=== PATIENT | female | born 1970 | race Caucasian/White ===

== ENCOUNTER 2019-12-11 13:38 | Emergency (ER) | payer OTHER, SELFPAY ==
[2019-12-11] VITALS (22 sets, daily range): BP systolic 121–172; BP diastolic 67–93; PULSE 67–85; RESP 14–32; TEMP 36.7; O2SAT 95–99
--- NOTE | ~2019-12-11 | CT_ITS ---
EXAMINATION: CT brain wo con DATE: 12/11/2019 15:14 INDICATION: Dizziness. TECHNIQUE: Computed tomography (CT) of the head was performed without intravenous contrast. The mA wa s adjusted according to patient size. Iterative reconstruction technique was employed. The dose-lengt h product was 605.33 mGy-cm. COMPARISON: Head CT 08/16/2018 FINDINGS: There is no intracranial hemorrhage, acute infarction, or abnormal intracranial mass lesion . The ventricles are normal in size. 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 The orbits are no rmal. The mastoid air cells are normal. IMPRESSION: 1. Normal brain. Reviewed, dictated and finalized at location A. IMPRESSION: 1. Normal brain.
--- NOTE | ~2019-12-11 | XR_ITS ---
EXAMINATION: XR chest 2V DATE: 12/11/2019 15:25 INDICATION: Chest pain. TECHNIQUE: Frontal and lateral views of the chest were obtained. COMPARISON: None. FINDINGS: The chest demonstrates clear lungs without pneumonia, pleural effusion, or pneumothorax. Th e heart size is normal. IMPRESSION: 1. No acute cardiopulmonary disease. Reviewed, dictated and finalized at location A.
--- NOTE | 2019-12-11 13:52 | ECG_ITS ---
Measurements Intervals [place] Rate: 73 P: 63 [place]: 132 QRS: -3 QRSD: 94 T: 28 QT: 373 QTc: 411 Interpretive Statements SINUS RHYTHM DELAYED PRECORDIAL R/S TRANSITION BASELINE ARTIFACT- I, II, III, AVR, AVL, AVF, V5-V6 BORDERLINE ECG Electronically Signed On 12-11-2019 14:26:50 CDT by Romeo Powers D.O.
[2019-12-11 14:15] LABS: Basophils Absolute Auto 0.1 K/mm3 (0.0-0.1); Basophils Percent Auto 0.7 % (0.2-1.2); Eosinophils Absolute Auto 0.3 K/mm3 (0-0.3); Eosinophils Percent Auto 2.7 % (0-4.4); Hemoglobin 13.7 g/dL (12.0-15.0); Immature Granulocyte Absolute 0.07 K/mm3 (0.00-0.031); Immature Granulocyte Percent A 0.7 % (0-0.5); Lymphocytes Absolute Auto 3.24 K/mm3 (0.9-3.2); Lymphocytes Percent Auto 34.1 % (18.3-44.2); Mean Corpuscular HGB Conc 32.6 g/dl (32-36); Mean Corpuscular Hemoglobin 28.8 pg (26-34); Mean Corpuscular Volume 88.2 fl (80-100); Mean Platelet Volume 9.2 fl (7.4-10.4); Monocytes Absolute Auto 0.8 K/mm3 (0.1-0.6); Monocytes Percent Auto 8.3 % (2.6-8.5); Neutrophils Absolute Auto 5.1 K/mm3 (1.3-6.7); Neutrophils Percent Auto 53.5 % (45.5-73.1); Platelet Count Result 317 k/mm3 (150-375); Red Blood Count 4.76 M/mm3 (4.2-5.4); Red Cell Distribution Width 14.1 % (11.5-14.5); White Blood Count 9.5 K/mm3 (4.5-10.0)
[2019-12-11 14:22] LABS: Add Urine Microscopic? YES; Appearance Urine Clear (Clear); Bacteria Urine Trace /hpf; Bilirubin Urine Negative (Negative); Blood Urine Negative (Negative); Color Urine Colorless (Yellow); Glucose Urine UA Negative (Negative); Ketones Urine Negative (Negative); Leukocyte Esterase Ur Negative LEU/UL (Negative); Nitrate Urine Negative (Negative); Protein Urine Negative (Negative); RBC Urine 0-2 /hpf (0-2); Specific Grav Ur 1.012 (1.001-1.035); Squamous Epithelial Cell Urine Few /hpf (Few); Urobilinogen Urine Negative mg/dL (<2.0); WBC Urine 0-3 /hpf
[2019-12-11 14:26] LABS: INR 0.9; Prothrombin Time 11.8 Seconds (11.1-14.7)
[2019-12-11 14:27] LABS: Partial Thromboplastin Time 26.9 SECONDS (22.3-36.8)
[2019-12-11 14:29] LABS: Blood Urea Nitrogen 16 mg/dL (7-17); Calcium 9.7 mg/dL (8.4-10.2); Carbon Dioxide 27 mmol/L (22-30); Chloride 104 mmol/L (98-107); Estimated CRCL calculation 83 ml/min; Estimated Glomerular Filt Rate > 60; Glucose 105 mg/dL (65-105); Potassium 4.2 mmol/L (3.4-5.0); Sodium 139 mmol/L (137-145)
[2019-12-11 14:41] LABS: Troponin I < 0.012 ng/mL (0.000-0.034)
--- NOTE | 2019-12-11 15:00 | ED.GENADULT ---
HPI - General Adult General Chief complaint: Recheck/Abnormal Lab/Rx Stated complaint: HIGH BLOOD PRESSURE Time Seen by Provider: 12/11/19 14:35 Source: RN notes reviewed History of Present Illness HPI narrative: Patient presents emergency department from home for high blood pressure. Patient states she has a history of high blood pressure and was seen by her PCP today and recommended come to the ER for further evaluation. Is currently on amlodipine 5 mg daily which she took this morning. Patient is to start yesterday she began to have intermittent headaches with intermittent blurred vision. She states currently she has no headache or blurred vision. She also notes some intermittent feeling of heaviness in her anterior chest bilaterally that is also currently resolved. She denies any fevers or chills numbness or tingling in extremities shortness of breath abdominal pain nausea vomiting or any other symptoms Related Data Allergies Allergy/AdvReac Type Severity Reaction Status Date / Time Penicillins Allergy Unknown Hives / Verified 03/15/19 10:59 Red Face Review of Systems Review of Systems: Narrative: Gen.: Denies fevers or chills Eyes: see HPI ENT: Denies congestion Respiratory: Denies shortness of breath or cough CV: See HPI GI: Denies abdominal pain nausea, emesis or diarrhea denies burning, urgency, frequency or hematuria Musculoskeletal: Denies back pain or muscle pain Neuro: Denies numbness, tingling, weakness or focal weakness, reports headache Skin: Denies rash Except as documented, all other systems reviewed and negative [facility] Past Medical History Medical History (Updated 12/11/19 @ 16:29 by Alvin Saul DO) Hypertension Social History Social History (Updated 12/11/19 @ 15:01 by Alvin Saul DO) Smoking status: Never smoker Exam Narrative: Exam Narrative: APPEARANCE: No acute distress, nontoxic, resting in bed HEENT: Normocephalic, atraumatic, OMM, TMs clear bilaterally EYES: PERRL, EOMI NECK: Supple, nontender, full range of motion without pain, no meningismus RESPIRATORY: No respiratory distress, clear to auscultation bilaterally with no rhonchi wheezing or rales CARDIOVASCULAR: RRR s murmur ABDOMINAL: Soft, nontender, nondistended MUSCULOSKELETAL: Moves all extremities. No clubbing, cyanosis or edema. NEURO: A and O ?3, following commands, speech normal, no facial droop,muscle strength 5 out of 5 bilateral upper and lower extremities SKIN:: Warm, dry. Normal Color PSYCHIATRIC: Normal affect/mood Course Course Emergency Course: Patient is remained asymptomatic throughout stay in ED Dr. Mckeon presentation work-up. Agrees plan for discharge per request patient started on hydrochlorothiazide 12.5 mg daily Discussed with patient results of workup and diagnosis. Discussed need for follow-up with primary care, proper use of medication, and reasons to return to the emergency department. Patient understands and agrees to current treatment plan Vital Signs Vital signs: Vital Signs Temperature 98.0 F 12/11/19 13:47 Pulse Rate 80 12/11/19 13:47 Respiratory Rate 18 12/11/19 13:47 Blood Pressure 121/93 H 12/11/19 13:47 Pulse Oximetry 95 12/11/19 13:47 Temperature 98.0 F 12/11/19 13:47 Pulse Rate 80 12/11/19 13:47 Respiratory Rate 18 12/11/19 13:47 Blood Pressure 121/93 H 12/11/19 13:47 Pulse Oximetry 95 12/11/19 13:47 Medical Decision Making MDM Narrative Medical decision making narrative: Patient's headache was not sudden or maximal in onset. There are no focal deficits on exam. Subarachnoid hemorrhage is felt to be unlikely at this time. There is no history of fever and neck is supple to evaluation without meningismus. Meningitis is felt to be unlikely. No traumatic history or signs of trauma on evaluation. Risk factors for cerebral venous thrombosis reviewed, no visual acuity change benign funduscopy. Cerebral venous thrombosis is felt unlikely at
--- NOTE | 2019-12-11 15:49 | PC.NURSE ---
Per EDP via verbal order readback. Do not give Pt. the aspirin.
[2019-12-11] MEDS: hydroCHLOROthiazide 12.5 MG CAPSULE PO (17:03)
== END 2019-12-11 17:17 | disposition home or self-care (01) ==
PROVIDERS: Emergency Provider Emergency Medicine; PCP Internal Medicine
DX: I10 Essential (primary) hypertension (principal); R51 Headache; R94.31 Abnormal electrocardiogram [ECG] [EKG]
CPT/HCPCS: 36415; 70450; 71046; 80048; 81001; 81025; 84484; 85025; 85610; 85730; 93005; 99284; A9270

== ENCOUNTER 2020-02-12 14:00 | Observation (INO) | payer OTHER, SELFPAY ==
[2020-02-12] VITALS (7 sets, daily range): BP systolic 120–148; BP diastolic 54–98; PULSE 86–97; RESP 20–22; TEMP 36.2–37.3; O2SAT 95–99; BMI 53.4
--- NOTE | ~2020-02-12 | US_ITS ---
EXAMINATION: US venous doppler [facility] EXAM DATE: 02/12/2020 15:29 INDICATION: Left leg edema, pain. TECHNIQUE: Multiple grayscale, color flow and Doppler images of the left lower extremity deep venous system were obtained and reviewed. There is no prior study for comparison. FINDINGS: The left common femoral, femoral and profunda veins demonstrate normal color flow, respirat ory variation, augmentation and compressibility. Compressibility, color flow confirmed within the le ft popliteal, posterior tibial, peroneal, and greater saphenous veins. Right inguinal lymph node whi ch is enlarged at 2.1 x 1.1 x 2.5 cm, but with a normal expected fatty hilum indicating its likely re active. IMPRESSION: 1. No left lower extremity deep venous thrombosis. 2. Right inguinal lymphadenopathy, likely reactive. Reviewed, dictated and finalized at location B.
--- NOTE | ~2020-02-12 | CT_ITS ---
EXAMINATION: CTA chest PE protocol DATE: 02/12/2020 16:48 INDICATION: Shortness of breath. Left lower limb swelling and erythema. Dyspnea and fever. TECHNIQUE: Computed tomography (CT) pulmonary angiogram of the chest was performed with 100 mL Omnipa que-350 intravenous contrast. Additional 3D reconstructions utilizing coronal maximum intensity proje ction (MIP) were performed. Automated exposure control and iterative reconstruction technique were em ployed. The dose-length product was 1066.47 mGy-cm. COMPARISON: None FINDINGS: Good contrast opacification of the pulmonary arteries. There is mild streak artifact from dense contr ast in the superior vena cava and right atrium. Mild scattered respiratory motion artifact which only mildly decreases sensitivity in some of the smaller subsegmental pulmonary arteries. Lungs are clear with no pneumonia, pulmonary edema, pleural effusion or pneumothorax. Heart size is normal. No peric ardial effusion. Thoracic aorta is normal in caliber with no dissection. No pathologically enlarged t horacic lymphadenopathy. Visualized upper abdomen is unremarkable. Mild thoracic spondylosis. IMPRESSION: 1. No pulmonary embolism or other acute cardiopulmonary disease. Reviewed, dictated and finalized at location A.
--- NOTE | 2020-02-12 14:16 | ED.GENADULT ---
HPI - General Adult General Chief complaint: Unspecified Stated complaint: Possible Blood Cots, Sent by PCP Time Seen by Provider: 02/12/20 14:15 Source: patient Mode of arrival: ambulatory Limitations: no limitations History of Present Illness HPI narrative: Patient is a 50-year-old female with a history of hypertension and asthma who presents for evaluation of left lower extremity swelling, redness and pain as well as cough and shortness of breath. Patient states that she developed lower extremity swelling, redness and a dull, aching pain in the left lower leg over 3 days ago. Patient has been on clindamycin for 72 hours without improvement in her symptoms or the redness. She states she was unable to bear weight yesterday due to the pain. She has been febrile to 101 Fahrenheit today. She has been alternating Tylenol and ibuprofen without improvement in her symptoms. Patient denies nausea or vomiting. Patient is also reporting some mild chest pain and shortness of breath. She states the pain is described as a pressure, no radiation to the jaw, shoulder or back. No ripping or tearing sensation to the flank. Related Data Home Medications Medication Instructions Recorded Confirmed amlodipine 5 mg PO DAILY 02/12/20 bupropion HCl [Wellbutrin SR] 150 mg PO BID 02/12/20 fluticasone furoate-vilanterol 1 inh INHALATION DAILY 02/12/20 [Breo Ellipta] lisinopril 5 mg PO DAILY 02/12/20 montelukast 10 mg PO DAILY 02/12/20 omeprazole 20 mg PO DAILY 02/12/20 pravastatin 40 mg PO HS 02/12/20 trazodone 50 mg PO HS 02/12/20 Allergies Allergy/AdvReac Type Severity Reaction Status Date / Time Penicillins Allergy Unknown Hives / Verified 02/12/20 17:25 Red Face Review of Systems Review of Systems: Narrative: CONSTITUTIONAL: Reports fever and chills EYES: Denies visual changes ENT: Denies rhinorrhea, congestion, sore throat, or otalgia. CARDIOVASCULAR: Reports chest pressure, reports left leg swelling RESPIRATORY: Reports cough and shortness of breath GASTROINTESTINAL: Denies abdominal pain, nausea, vomiting, or diarrhea. GENITOURINARY: Denies dysuria or hematuria. SKIN: Denies rash or itching. MUSCULOSKELETAL: Denies back pain, joint pain, or myalgia. NEUROLOGIC: Reports mild headache PMFSH Past Medical History Medical History Asthma Hypertension Social History Social History Smoking status: Never smoker Gender identity (if verbalized by the patient): Female Exam Narrative: Exam Narrative: GENERAL: Awake, alert, conversant HEAD: Normocephalic, atraumatic. EYES: PERRLA and EOMI. ENT: Nares clear, no rhinorrhea or epistaxis. Mucous membranes moist. NECK: Supple. CHEST: No respiratory distress, breathing even and non labored, + pleuritic pain, no chest wall tenderness HEART: Regular rate, sinus rhythm ABDOMEN:Obese, non distended, non tender EXTREMITIES: Normal range of motion. Left lower extremity erythema, appx 12 cm overlying anterior lower leg, nearly circumferential, edema, warmth, 1 small blister on the medial aspect of the leg, no abscess, positive calf tenderness SKIN: Warm, dry, no rash. NEURO:No focal deficits. Alert and oriented x3 Course Vital Signs Vital signs: Vital Signs Temperature 36.6 C 02/12/20 14:11 Pulse Rate 88 02/12/20 14:11 Respiratory Rate 20 02/12/20 14:11 Blood Pressure 138/66 02/12/20 14:11 Pulse Oximetry 99 02/12/20 14:11 Temperature 36.6 C 02/12/20 14:11 Pulse Rate 88 02/12/20 14:11 Respiratory Rate 20 02/12/20 14:11 Blood Pressure 138/66 02/12/20 14:11 Pulse Oximetry 99 02/12/20 14:11 Medical Decision Making MDM Narrative Medical decision making narrative: Patient presenting for evaluation of left lower extremity pain. Also reporting fever, intermittent chest pain, some shortness of breath. No productive cough. Patient is
--- NOTE | 2020-02-12 14:48 | ECG_ITS ---
Measurements Intervals [place] Rate: 74 P: 12 [place]: 132 QRS: 2 QRSD: 99 T: 10 QT: 405 QTc: 451 Interpretive Statements SINUS RHYTHM DELAYED PRECORDIAL R/S TRANSITION BORDERLINE T WAVE ABNORMALITY- INFERIOR LEADS BORDERLINE ECG Electronically Signed On 02-12-2020 19:34:03 CDT by Romeo Powers D.O.
[2020-02-12 15:11] LABS: Basophils Absolute Auto 0.1 K/mm3 (0.0-0.1); Basophils Percent Auto 0.6 % (0.2-1.2); Eosinophils Absolute Auto 0.1 K/mm3 (0-0.3); Eosinophils Percent Auto 1.2 % (0-4.4); Hematocrit 36.6 % (37.0-47.0); Hemoglobin 11.7 g/dL (12.0-15.0); Immature Granulocyte Absolute 0.09 K/mm3 (0.00-0.031); Immature Granulocyte Percent A 0.9 % (0-0.5); Lymphocytes Absolute Auto 2.37 K/mm3 (0.9-3.2); Lymphocytes Percent Auto 23.5 % (18.3-44.2); Mean Corpuscular Hemoglobin 28.6 pg (26-34); Mean Corpuscular Volume 89.5 fl (80-100); Mean Platelet Volume 9.4 fl (7.4-10.4); Monocytes Absolute Auto 0.8 K/mm3 (0.1-0.6); Monocytes Percent Auto 7.9 % (2.6-8.5); Neutrophils Absolute Auto 6.7 K/mm3 (1.3-6.7); Neutrophils Percent Auto 65.9 % (45.5-73.1); Platelet Count Result 228 k/mm3 (150-375); Red Blood Count 4.09 M/mm3 (4.2-5.4); Red Cell Distribution Width 15.3 % (11.5-14.5); White Blood Count 10.1 K/mm3 (4.5-10.0)
[2020-02-12 15:21] LABS: Lactic Acid Reflex 1.4 mmol/L (0.7-2.1)
[2020-02-12 15:23] LABS: Prothrombin Time 13.3 Seconds (11.1-14.7)
[2020-02-12 15:24] LABS: Partial Thromboplastin Time 29.7 SECONDS (22.3-36.8)
[2020-02-12 15:27] LABS: Alanine Aminotransferase 33 U/L (4-35); Albumin Level 3.9 g/dL (3.5-5.1); Alkaline Phosphatase 129 U/L (38-126); Anion Gap 11 mmol/L (8-16); Aspartate Amino Transferase 34 U/L (14-36); Bilirubin,Total 0.1 mg/dL (0.2-1.3); Blood Urea Nitrogen 8 mg/dL (7-17); Calcium 8.6 mg/dL (8.4-10.2); Carbon Dioxide 24 mmol/L (22-30); Chloride 105 mmol/L (98-107); Estimated CRCL calculation 94 ml/min; Estimated Glomerular Filt Rate > 60; Glucose 139 mg/dL (65-105); Potassium 3.7 mmol/L (3.4-5.0); Sodium 140 mmol/L (137-145)
[2020-02-12 15:34] LABS: NT Pro B Type Natriuretic Pept 152 PG/ML (5-100); Troponin I < 0.012 ng/mL (0.000-0.034)
[2020-02-12] MEDS: ASPIRIN 81 MG CHEWABLE TABLET 324 MG PO (17:19)
[2020-02-12] MEDS: SODIUM CHLORIDE 0.9% IV 1,000 ML 999 ML IV CONT ×2 (17:21→17:24)
[2020-02-12 19:46] LABS: Troponin I < 0.012 ng/mL (0.000-0.034)
[2020-02-12] MEDS: MORPHINE SULFATE 4 MG/ML INJ IV PUSH (20:01)
--- NOTE | 2020-02-12 21:05 | ADMGEN ---
This patient, Brittney Marmolejo, was admitted to Medical Room 243-. Patient/family oriented to hospital policies and general routines including ID bracelet, bed and alarms, visiting hours, pain management, procedures, bathroom and other care routines, personal items, smoking policy, room service/diet, and visiting hours. Valuables list has been completed. Information on how to activate the Rapid Response Team has been discussed. Patient/Family are encouraged to report perceived risks to care and to ask questions if they do not understand what they are told or what they should do.
--- NOTE | 2020-02-12 21:28 | PM.IMHP ---
H&P: HPI History of Present Illness Date/Time: 02/12/20 21:28 Chief complaint: Cellulitis, chest pain Narrative: This is a pleasant 50 year old morbidly obese female with asthma who presented to the hospital for evaluation of left lower extremity redness, swelling, and pain that she has had for the past 4 days. She describes developing fever on Monday night and by Monday she had a red lacy rash on her right lower leg. Associated symptoms included nausea, body aches, and headache. She was placed on Clindamycin by her PCP and did not improve. She also reports having mid sternal chest heaviness all day Monday and Monday. Today she experienced mid sternal chest heaviness that was intermittent in nature with associated shortness of breath. She denies any radiation of her chest discomfort. The patient was evaluated in the ER tonight and EKG did not demonstrate any ST deviation. Troponin has been negative. She has been started on IV antibiotics and admitted to the hospital. She has a history of previous LLE cellulitis in the past but denies any history of MRSA infections. No other complaints tonight. Review of Systems Review of Systems: All systems reviewed & are unremarkable except as noted in HPI and below PMFSH Past Medical History Medical History (Updated 02/13/20 @ 03:35 by Amaury Brock MD) Asthma Hypertension Surgical History Surgical History (Updated 02/12/20 @ 21:35 by Amaury Brock MD) History of ankle surgery Social History Social History Smoking status: Never smoker Alcohol intake: current Drinks per week: 10 Substance use: never Substance use type: does not use Gender identity (if verbalized by the patient): Female Spiritual care concerns: No Meds Home Medications and Allergies Home Medications Medication Instructions Recorded Confirmed Type hydrochlorothiazide 12.5 mg PO DAILY #14 tablet 12/11/19 02/12/20 Rx amlodipine 5 mg PO DAILY 02/12/20 02/12/20 History bupropion HCl [Wellbutrin SR] 150 mg PO BID 02/12/20 02/12/20 History fluticasone furoate-vilanterol 1 inh INHALATION DAILY 02/12/20 02/12/20 History [Breo Ellipta] lisinopril 5 mg PO DAILY 02/12/20 02/12/20 History montelukast 10 mg PO DAILY 02/12/20 02/12/20 History omeprazole 40 mg PO DAILY 02/12/20 02/12/20 History pravastatin 40 mg PO HS 02/12/20 02/12/20 History trazodone 50 mg PO HS 02/12/20 02/12/20 History Allergies Allergy/AdvReac Type Severity Reaction Status Date / Time Penicillins Allergy Unknown Hives / Verified 02/12/20 17:25 Red Face Vital Signs Vital Signs - 24 hr 02/12/20 14:11 02/12/20 15:05 02/12/20 17:00 Temperature 36.6 C Pulse Rate 88 87 86 Respiratory Rate 20 20 20 Blood Pressure 138/66 148/60 H 147/64 H Pulse Oximetry 99 96 97 02/12/20 18:38 02/12/20 20:06 02/12/20 21:19 Temperature 37.3 C 36.2 C L Pulse Rate 86 87 90 Respiratory Rate 20 20 22 H Blood Pressure 146/88 H 120/77 144/54 H Pulse Oximetry 96 95 98 Exam Const: General: cooperative, alert, awake and uncomfortable Nutritional Appearance: obese morbidly obese Orientation/consciousness: patient oriented x3 HENMT: Head: normal to inspection General nose exam: Normal external nose present Face and sinus: normal facial exam Mouth: Yes Normal oral and palatal mucosa present and Yes oropharynx normal Eyes: Pupils: Equal, round and reactive pupils present EOM: EOMs intact bilaterally Neck: Neck: supple and no JVD Thyroid: thyroid normal Lymphatic: lymphadenopathy not noted Resp: Effort & Inspection: normal respiratory effort Auscultation: clear to auscultation bilaterally Cardio: Rate: regular rate Rhythm: regular rhythm Heart sounds: no murmurs GI: Inspection: normal to inspection Auscultation: normal bowel sounds Skin: General skin exam: erythema (Dark red lacy rash on left lower extremity below knee extending to foot++ ) Neuro
--- NOTE | 2020-02-12 22:29 | PC.NURSE ---
This patient, Brittney Marmolejo, was received from [ [phone]] on 02/12/20 at 2229. Personal belongings list checked and signed. Patient/family oriented to unit policies and routines
[2020-02-13] VITALS (16 sets, daily range): BP systolic 110–163; BP diastolic 48–80; PULSE 67–102; RESP 16–20; TEMP 36.9–37.6; O2SAT 91–98
--- NOTE | 2020-02-13 | ECHO_ITS ---
Patient Info Name: Brittney Marmolejo Age: 50 years : 1970 Gender: Female Ht: 60 in Wt: 273 lbs BSA: 2.38 m2 HR: 83 bpm BP: 122 / 61 mmHg Heart Rhythm: Sinus Rhythm Technical Quality: Fair Exam Date: 02/13/2020 2:10 PM Exam Location: [facility] Patient Status: Inpatient Admit Date: 02/12/2020 Staff Ordering Physician: Yuriy De Los Santos MD Whizzer Operator: Marta Sauer RDCS Attending Provider: Yuriy De Los Santos MD Exam Type: CA echo dop color flow w con Study Info Indications R07.9 - Chest pain, unspecified Complete two-dimensional, color flow and Doppler transthoracic echocardiogram is performed with contrast to opacify the left ventricle and to improve the deliniation of the left ventricle endocardial borders. Contrast/Agitated Saline Contrast/Ag. Saline: Definity Amount: 1.50 ml Administered By: Nahun Dickens, RN IV Access Condition: patent with no signs of infiltration Summary 1. Left ventricular systolic function is normal, estimated at >70%. 2. There is no increased left ventricular wall thickness. 3. The left ventricular diastolic function is normal. 4. Right atrial chamber dimension is mildly enlarged. 5. Mild pulmonary hypertension, estimated pulmonary arterial systolic pressure is 38 mmHg. 6. No resting left ventricular outflow tract gradient. 7. There is trace mitral valve regurgitation. 8. There is no aortic valve stenosis. Left Ventricle Left ventricular chamber dimension is normal. Left ventricular systolic function is normal, estimated at >70%. There is no increased left ventricular wall thickness. The left ventricular diastolic function is normal. No resting left ventricular outflow tract gradient. Right Ventricle Right ventricular chamber dimension is normal. Right ventricular systolic function is normal. Left Atria Left atrial chamber dimension is normal. Right Atria Right atrial chamber dimension is mildly enlarged. Aortic Valve The aortic valve is not well visualized. There is no aortic valve stenosis. There is trace aortic valve regurgitation. Pulmonic Valve The pulmonic valve is not well visualized. There is trace pulmonic regurgitation. Mitral Valve The mitral valve has normal leaflets. There is trace mitral valve regurgitation. Tricuspid Valve The tricuspid valve leaflets are normal. There is mild tricuspid valve regurgitation. Mild pulmonary hypertension, estimated pulmonary arterial systolic pressure is 38 mmHg. Pericardium/Pleural The pericardium appears normal. There is no pericardial effusion. Inferior Vena Cava Normal inferior vena cava with >50% collapse upon inspiration consistent with Empty right atrial pressure, 5 mmHg. Aorta The aortic root size at the sinus of Valsalva is normal. Left Ventricular Outflow Tract Name Value Normal LVOT 2D LVOT Diameter 2.00 cm LVOT Doppler LVOT Peak Gradient 13 mmHg LVOT Mean Gradient 7 mmHg LVOT VTI 32.09 cm LVOT VTI/AV VTI Ratio
[2020-02-13 05:33] LABS: Basophils Absolute Auto 0.1 K/mm3 (0.0-0.1); Basophils Percent Auto 0.5 % (0.2-1.2); Eosinophils Absolute Auto 0.1 K/mm3 (0-0.3); Hematocrit 34.3 % (37.0-47.0); Hemoglobin 11.1 g/dL (12.0-15.0); Immature Granulocyte Absolute 0.11 K/mm3 (0.00-0.031); Immature Granulocyte Percent A 0.9 % (0-0.5); Lymphocytes Absolute Auto 2.23 K/mm3 (0.9-3.2); Mean Corpuscular HGB Conc 32.4 g/dl (32-36); Mean Corpuscular Hemoglobin 29.1 pg (26-34); Mean Platelet Volume 9.8 fl (7.4-10.4); Monocytes Percent Auto 8.9 % (2.6-8.5); Neutrophils Absolute Auto 8.2 K/mm3 (1.3-6.7); Neutrophils Percent Auto 69.7 % (45.5-73.1); Platelet Count Result 265 k/mm3 (150-375); Red Blood Count 3.81 M/mm3 (4.2-5.4); Red Cell Distribution Width 15.3 % (11.5-14.5); White Blood Count 11.7 K/mm3 (4.5-10.0)
[2020-02-13 05:46] LABS: Anion Gap 7 mmol/L (8-16); Blood Urea Nitrogen 5 mg/dL (7-17); Calcium 8.6 mg/dL (8.4-10.2); Carbon Dioxide 28 mmol/L (22-30); Chloride 102 mmol/L (98-107); Estimated CRCL calculation 113 ml/min; Estimated Glomerular Filt Rate > 60; Glucose 119 mg/dL (65-105); Sodium 137 mmol/L (137-145)
[2020-02-13 05:53] LABS: Troponin I 0.012 ng/mL (0.000-0.034)
[2020-02-13] MEDS: MONTELUKAST SODIUM 10 MG TABLET PO (09:19)
[2020-02-13] MEDS: lisinopriL 5 MG TABLET PO (09:20)
[2020-02-13] MEDS: PANTOPRAZOLE 40 MG TABLET PO (09:20)
[2020-02-13] MEDS: amLODIPine BESYLATE 5 MG TABLET PO (09:20)
--- NOTE | 2020-02-13 11:36 | PM.IMPN ---
Progress Note: A&P Assessment and Plan (1) Cellulitis of left lower leg: Code(s): L03.116 - Cellulitis of left lower limb Status: Acute Assessment and Plan: Patient with left LE cellulitis. CRP elevated to 15 with WBC slightly worse today at 11.7. Continue Vancomycin. Monitor clinically. (2) Chest pain: Qualifiers: Chest pain type: unspecified Qualified Code(s): R07.9 - Chest pain, unspecified Code(s): R07.9 - Chest pain, unspecified Status: Acute Assessment and Plan: Chest pain more likely related to myalgias from her infection. Trop negative x3. EKG appears essentially normal. Will continue telemetry but can move to medical floor. Check Echo. (3) Hypertension: Qualifiers: Hypertension type: unspecified Qualified Code(s): I10 - Essential (primary) hypertension Code(s): I10 - Essential (primary) hypertension Status: Chronic Assessment and Plan: Patient's blood pressure was reviewed on 02/13/20 Blood pressure elevted at times but mostly well controlled. Will continue current medications with Norvasc, Lisinopril and HCTZ. (4) Asthma: Qualifiers: Asthma complication type: unspecified Asthma persistence: unspecified Asthma severity: unspecified severity Qualified Code(s): J45.909 - Unspecified asthma, uncomplicated Code(s): J45.909 - Unspecified asthma, uncomplicated Status: Chronic Assessment and Plan: Stable. No wheezing. Continue home bronchodilators. (5) Morbid obesity: Code(s): E66.01 - Morbid (severe) obesity due to excess calories Status: Chronic Assessment and Plan: Patient was counseled by admitting provider on healthy lifestyle decisions. (6) DVT prophylaxis: Code(s): Z29.9 - Encounter for prophylactic measures, unspecified Status: Acute Assessment and Plan: Lovenox Subjective Date/time seen: 02/13/20 11:36 Interval history: 50yo female here for CP and cellulitis. patient slept poorly last night. She did have a headache but that has resolved. No history of migraines. No further chest pain. She states the chest pain was more related to myalgias and feeling achy . She has not had a recent stress test. She denies shortness of breath. She is alert to penicillin but does not know the symptoms. She has not had any other PCN or cephalosporin antibiotics safely that she can name. Exam Narrative: Exam Narrative: AF 98.6 126/48 86 18 96% ra Gen - NARD Lying flat in bed Chest - CTA bilaterally, nml RR CV - RRR S1/S2; telemetry showing no significant dysrhythmias Abd - Soft, NT/ND, Positive BS Ext - No pedal edema Neuro - Alert and oriented. Nonfocal exam. normal sensation to the left foot. Psych - Nml mood and affect Skin - Large deep red erythematous patch left anterior barnett without obvious subcutaneous fluid collections. warm to touch but minimally tender. Objective Data Vital Signs Vital Signs: Vital Signs - 24 hr 02/12/20 14:11 02/12/20 15:05 02/12/20 17:00 Temperature 97.9 F Pulse Rate 88 87 86 Respiratory Rate 20 20 20 Blood Pressure 138/66 148/60 H 147/64 H Pulse Oximetry 99 96 97 02/12/20 18:38 02/12/20 20:06 02/12/20 21:19 Temperature 99.1 F 97.2 F L Pulse Rate 86 87 90 Respiratory Rate 20 20 22 H Blood Pressure 146/88 H 120/77 144/54 H Pulse Oximetry 96 95 98 02/12/20 22:31 02/13/20 00:04 02/13/20 01:12 Temperature 97.4 F L 98.8 F Pulse Rate 97 90 87 Respiratory Rate 20 20 Blood Pressure 148/98 H 163/80 H Pulse Oximetry 98 94 02/13/20 03:12 02/13/20 04:14 02/13/20 04:16 Temperature 99.6 F Pulse Rate 77 97 102 H Respiratory Rate 20 Blood Pressure 147/71 H Pulse Oximetry 91 02/13/20 08:00 02/13/20 08:14 Temperature 98.6 F Pulse Rate 99 86 Respiratory Rate 18 Blood Pressure 126/48 L Pulse Oximetry 96 Intake/Output Intake/Output: Intake &
[2020-02-13] MEDS: PERFLUTREN LIPID MICROSPHERES 1.5 ML VIAL DILUTED TO 10 ML TOTAL VOLUME IV PUSH (15:08)
[2020-02-13] MEDS: ACETAMINOPHEN 325 MG TABLET 650 MG PO (15:21)
--- NOTE | 2020-02-13 18:53 | PC.NURSE ---
This patient, Brittney Marmolejo, was transferred to [facility] on 02/13/20 at 1853. Personal belongings sent with patient. Report given to EDILBERTO Hicks. Appropriate documentation sent with patient.
--- NOTE | 2020-02-13 19:14 | PC.NURSE ---
Pt transferred in from IMU 210. Received report from Raisa. Pt onto floor at 1905, tele on. Pt in bed resting.
[2020-02-13] MEDS: traZODone HCL 50 MG TABLET PO (19:52)
[2020-02-13] MEDS: PRAVASTATIN SODIUM 20 MG TABLET 40 MG PO (19:52)
[2020-02-14] VITALS: PULSE 80
[2020-02-14 02:58] LABS: Hematocrit 34.3 % (37.0-47.0); Hemoglobin 11.1 g/dL (12.0-15.0); Mean Corpuscular HGB Conc 32.4 g/dl (32-36); Mean Corpuscular Hemoglobin 28.7 pg (26-34); Mean Corpuscular Volume 88.6 fl (80-100); Platelet Count Result 268 k/mm3 (150-375); Red Blood Count 3.87 M/mm3 (4.2-5.4); Red Cell Distribution Width 15.2 % (11.5-14.5); White Blood Count 11.1 K/mm3 (4.5-10.0)
[2020-02-14 03:13] LABS: Anion Gap 9 mmol/L (8-16); Blood Urea Nitrogen 8 mg/dL (7-17); Calcium 9.1 mg/dL (8.4-10.2); Carbon Dioxide 26 mmol/L (22-30); Chloride 103 mmol/L (98-107); Estimated CRCL calculation 113 ml/min; Estimated Glomerular Filt Rate > 60; Glucose 123 mg/dL (65-105); Potassium 3.8 mmol/L (3.4-5.0); Sodium 138 mmol/L (137-145)
[2020-02-14 03:41] LABS: Vancomycin Trough 8.3 ug/mL (10.0-20.0)
[2020-02-14 04:00] VITALS: PULSE 87
[2020-02-14 06:00] VITALS: BP 143/60; PULSE 83; RESP 18; TEMP 36.6; O2SAT 97
[2020-02-14 08:00] VITALS: PULSE 71
[2020-02-14 12:00] VITALS: PULSE 82
--- NOTE | 2020-02-14 12:34 | PM.DS ---
DS: Admitting Diagnosis Admitting Diagnosis Admitting Diagnosis: Cellulitis, chest pain DS: Discharge Diagnosis Discharge Diagnosis (1) Cellulitis of left lower leg: Code(s): L03.116 - Cellulitis of left lower limb Status: Acute Assessment and Plan: Patient with left LE cellulitis. Was on Clindamycin but only took for 2+ days. She was having trouble bearing weight on the leg prior to admission. She was started on Vancomycin after BCx collected. BCx NGTD after 2 days. Doppler negative for DVT but right (?) inguinal lymphadenopathy noted. No documented fevers here. CRP elevated to 15 with WBC mildly elevated in the 10-11 range but no significant change. She has been up ambulating. No significant pain in the leg now with walking. Still red and warm but not tracking or weeping. Edema better. Will give the afternoon Vanco and have her then resume her Clindamycin at discharge. (2) Chest pain: Qualifiers: Chest pain type: unspecified Qualified Code(s): R07.9 - Chest pain, unspecified Code(s): R07.9 - Chest pain, unspecified Status: Acute Assessment and Plan: Patient with complaints of chest pain on admission. Trop negative x3. EKG appears essentially normal. Echo normal. CTA chest was negative for PE or any acute cardiopulmonary disease. Telemetry showing no significant dysrhythmias. Chest pain more likely related to myalgias from her infection. (3) Hypertension: Qualifiers: Hypertension type: unspecified Qualified Code(s): I10 - Essential (primary) hypertension Code(s): I10 - Essential (primary) hypertension Status: Chronic Assessment and Plan: Patient's blood pressure was monitored Blood pressure was elevated at times but mostly well controlled. We continued current medications with Norvasc, Lisinopril and HCTZ. (4) Asthma: Qualifiers: Asthma severity: unspecified severity Asthma persistence: unspecified Asthma complication type: unspecified Qualified Code(s): J45.909 - Unspecified asthma, uncomplicated Code(s): J45.909 - Unspecified asthma, uncomplicated Status: Chronic Assessment and Plan: Stable. No wheezing. We continued her home bronchodilators. (5) Morbid obesity: Code(s): E66.01 - Morbid (severe) obesity due to excess calories Status: Chronic Assessment and Plan: Patient was counseled by admitting provider on healthy lifestyle decisions. (6) DVT prophylaxis: Code(s): Z29.9 - Encounter for prophylactic measures, unspecified Status: Acute Assessment and Plan: Lovenox DS: Summary Hospital Course Reason for hospitalization: 50yo female here for chest pain and left leg cellulitis. Please see H&P for details. Hospital Course: As above Time Spent with Patient Time attestation: Total time spent providing and/or coordinating discharge services:32 minutes Time spent: Greater than 30 minutes Exam Narrative: Exam Narrative: AF 97.9 143/60 71 18 97% ra Gen - NARD lying flat in bed Chest - CTA bilaterally, nml RR CV - RRR S1/S2; telemetry showing no significant dysrhythmias Abd - Soft, NT/ND, Positive BS Ext - No pedal edema; minor wrinkling noted to the LLE Psych - Nml mood and affect Skin - Deep red erythematous patch left anterior barnett without obvious subcutaneous fluid collections. No blistering. Erythema has not tracked. Warm to touch. nontender. DS: Data Data Completed and Pending Labs on day of discharge: Labs from last 24 hours 02/14/20 02/14/20 02/14/20 02:48 02:48 02:48 WBC 11.1 H RBC 3.87 L Hgb 11.1 L Hct 34.3 L MCV 88.6 MCH 28.7 MCHC 32.4 RDW 15.2 H Plt Count 268 MPV 9.0 Sodium 138 Potassium 3.8 Chloride 103 Carbon Dioxide 26 Anion Gap 9 BUN 8 Creatinine 0.60 L Estim Creat Clear Calc 113 Estimated GFR > 60 Glucose 123 H Ca
[2020-02-14 14:00] VITALS: BP 139/61; PULSE 76; RESP 18; TEMP 36.5; O2SAT 97
[2020-02-14] MEDS: amLODIPine BESYLATE 5 MG TABLET PO (14:03)
[2020-02-14] MEDS: MONTELUKAST SODIUM 10 MG TABLET PO (14:03)
[2020-02-14] MEDS: hydroCHLOROthiazide 12.5 MG CAPSULE PO (14:03)
[2020-02-14] MEDS: PANTOPRAZOLE 40 MG TABLET PO (14:04)
[2020-02-14] MEDS: lisinopriL 5 MG TABLET PO (14:04)
--- NOTE | 2020-02-19 07:32 | PC.NURSE ---
Blood cx are negative. Dr. Magali santiago.
--- NOTE | 2020-02-21 07:40 | PC.NURSE ---
Blood cx are negative. Dr. De Los Santos is aware.
== END 2020-02-14 18:10 | disposition home or self-care (01) ==
LOC: ANHED 17:17 → ANH2MED 20:03 → ANHIMU 22:27 → ANH3MEDSUR 02-13 18:48
PROVIDERS: Family Medicine; Admitting Provider Internal Medicine; Emergency Provider Emergency Medicine; PCP Internal Medicine; Visit Provider Internal Medicine
DX: L03.116 Cellulitis of left lower limb (principal); R07.9 Chest pain, unspecified; E66.01 Morbid (severe) obesity due to excess calories; I10 Essential (primary) hypertension; J45.909 Unspecified asthma, uncomplicated; Z68.43 Body mass index [BMI] 50.0-59.9, adult
CPT/HCPCS: 36415; 71275; 80048; 80053; 80202; 83605; 83880; 84484; 85025; 85027; 85610; 85730; 86140; 87040; 93005; 93971; 94640; 96361; 96365; 96366; 96375; 99285; A9270; C8929; G0378; J2270; J3370; J7030; Q9957; Q9967

== ENCOUNTER 2020-05-25 08:14 | Outpatient (CLI) | payer OTHER, SELFPAY ==
--- NOTE | ~2020-05-25 | MM_ITS ---
EXAMINATION: MM screening sherlyn BI w charles HISTORY: Screening mammogram TECHNIQUE: Craniocaudal and mediolateral oblique 3-D tomosynthesis images were obtained and synthetic 2-D images were generated. CAD analysis was submitted and interpreted. COMPARISON: No prior mammogram is available for comparison at this institution. BREAST PARENCHYMAL COMPOSITION: The breasts are almost entirely fatty. FINDINGS: There is no evidence of suspicious mass, calcification, or architectural distortion to sugg est malignancy in either breast. There has been no suspicious interval change. IMPRESSION: 1. No mammographic evidence of malignancy. 2. Recommend routine screening mammography in one year. BI-RADS Category 1: Negative Reviewed, dictated and finalized at location A. [employer]
== END 2020-05-25 08:15 | disposition home or self-care (01) ==
LOC: ANHIMG 08:16
PROVIDERS: PCP Internal Medicine; Visit Provider Internal Medicine
DX: Z12.31 Encounter for screening mammogram for malignant neoplasm of breast (principal)
CPT/HCPCS: 77063; 77067

== ENCOUNTER 2020-12-19 16:19 | Emergency (ER) | payer OTHER, SELFPAY ==
[2020-12-19 16:26] VITALS: BP 158/61; PULSE 78; RESP 18; TEMP 36.6; O2SAT 98
[2020-12-19 16:37] LABS: Basophils Absolute Auto 0.1 K/mm3 (0.0-0.1); Basophils Percent Auto 0.5 % (0.2-1.2); Eosinophils Absolute Auto 0.2 K/mm3 (0-0.3); Eosinophils Percent Auto 1.5 % (0-4.4); Hematocrit 42.3 % (37.0-47.0); Hemoglobin 13.5 g/dL (12.0-15.0); Immature Granulocyte Absolute 0.05 K/mm3 (0.00-0.031); Immature Granulocyte Percent A 0.4 % (0-0.5); Lymphocytes Absolute Auto 3.64 K/mm3 (0.9-3.2); Lymphocytes Percent Auto 27.9 % (18.3-44.2); Mean Corpuscular HGB Conc 31.9 g/dl (32-36); Mean Corpuscular Volume 87.6 fl (80-100); Monocytes Absolute Auto 0.8 K/mm3 (0.1-0.6); Monocytes Percent Auto 6.3 % (2.6-8.5); Neutrophils Absolute Auto 8.3 K/mm3 (1.3-6.7); Neutrophils Percent Auto 63.4 % (45.5-73.1); Platelet Count Result 300 k/mm3 (150-375); Red Blood Count 4.83 M/mm3 (4.2-5.4); Red Cell Distribution Width 14.6 % (11.5-14.5); White Blood Count 13.1 K/mm3 (4.5-10.0)
[2020-12-19 16:44] LABS: Add Urine Microscopic? YES; Appearance Urine Cloudy (Clear); Bacteria Urine Trace /hpf; Bilirubin Urine Negative (Negative); Blood Urine 3+ (Negative); Color Urine Red (Yellow); Glucose Urine UA Negative (Negative); Ketones Urine Negative (Negative); Leukocyte Esterase Ur 3+ LEU/UL (Negative); Mucus Urine Rare /lpf; Nitrate Urine Negative (Negative); Protein Urine 2+ mg/dL (Negative); RBC Urine >75 /hpf (0-2); Specific Grav Ur 1.015 (1.001-1.035); Squamous Epithelial Cell Urine Rare /hpf (Few); Urobilinogen Urine Negative mg/dL (<2.0); WBC Urine 51-75 /hpf
[2020-12-19 16:46] LABS: Anion Gap 10 mmol/L (8-16); Blood Urea Nitrogen 13 mg/dL (7-17); Calcium 9.6 mg/dL (8.4-10.2); Carbon Dioxide 26 mmol/L (22-30); Chloride 106 mmol/L (98-107); Estimated CRCL calculation 86 ml/min; Estimated Glomerular Filt Rate > 60; Glucose 105 mg/dL (65-105); Sodium 142 mmol/L (137-145)
--- NOTE | 2020-12-19 18:34 | ED.FEMALEGU ---
HPI - Female Genitourinary General Chief complaint: Urogenital-Female Stated complaint: UTI Time Seen by Provider: 12/19/20 18:11 Source: patient Mode of arrival: ambulatory Limitations: no limitations History of Present Illness HPI Narrative: Patient is 50 years old white female presents with burning urination, frequency and blood in the urine started this morning. Patient denies any fever, chills, nausea, vomiting, flank pain, lower back pain. Patient also denies any vaginal bleeding or discharge. Related Data Home Medications Medication Instructions Recorded Confirmed amlodipine 5 mg PO DAILY 02/12/20 08/10/20 bupropion HCl [Wellbutrin SR] 150 mg PO BID 02/12/20 08/10/20 lisinopril 5 mg PO DAILY 02/12/20 08/10/20 montelukast 10 mg PO DAILY 02/12/20 08/10/20 omeprazole 40 mg PO DAILY 02/12/20 08/10/20 pravastatin 40 mg PO HS 02/12/20 08/10/20 trazodone 50 mg PO HS 02/12/20 08/10/20 fluticasone furoate 100 1 inh INHALATION DAILY 05/01/20 08/10/20 mcg-vilanterol 25 mcg/dose inhalation powder Allergies Allergy/AdvReac Type Severity Reaction Status Date / Time Penicillins Allergy Unknown Hives / Verified 05/01/20 13:10 Red Face Review of Systems Review of Systems: Narrative: CONSTITUTIONAL: Denies fever, chills, or sweats. EYES: Denies visual changes, redness, or discharge. ENT: Denies rhinorrhea, congestion, sore throat, or otalgia. CARDIOVASCULAR: Denies chest pain, palpitations, or edema. RESPIRATORY: Denies cough or dyspnea. GASTROINTESTINAL: Denies abdominal pain, nausea, vomiting, or diarrhea. GENITOURINARY: Denies dysuria or hematuria. SKIN: Denies rash or itching. MUSCULOSKELETAL: Denies back pain, joint pain, or myalgia. NEUROLOGIC: Denies headache, numbness, or weakness. PSYCHIATRIC: Denies anxiety or depression. [facility] Past Medical History Medical History Asthma Hypertension Surgical History Surgical History History of ankle surgery Social History Social History Smoking status: Former smoker Alcohol intake: current Drinks per week: 10 Substance use: never Substance use type: does not use Gender identity (if verbalized by the patient): Female Spiritual care concerns: No Exam Narrative: Exam Narrative: General appearance: Well-developed, well-nourished Skin: Normal color Head: Normocephalic, nontraumatic Eyes: Clear conjunctiva ENT: Oropharynx normal, ears normal, nose normal Neck: Supple, nontender Chest and respiratory: Airway patent, no respiratory distress, no accessory muscle use Heart: Regular rate/rhythm Abdomen: Soft, nontender, no organomegaly, quiet bowel sounds Vascular: Normal peripheral pulses, normal capillary refill. Musculoskeletal: Normal range of motion, nontender back Neurologic: Alert and oriented ?3, [employer] is normal as tested, no gross motor deficit Course Course Emergency Course: Stable Vital Signs Vital signs: Vital Signs Temperature 36.6 C 12/19/20 16:26 Pulse Rate 78 12/19/20 16:26 Respiratory Rate 18 12/19/20 16:26 Blood Pressure 158/61 H 12/19/20 16:26 Pulse Oximetry 98 12/19/20 16:26 Temperature 36.6 C 12/19/20 16:26 Pulse Rate 78 12/19/20 16:26 Respiratory Rate 18 12/19/20 16:26 Blood Pressure 158/61 H 12/19/20 16:26 Pulse Oximetry 98 12/19/20 16:26 MDM - Female Genitourinary MDM Narrative Medical decision making narrative: Urinary tract infection Differential Diagnosis Differential diagnosis: Likely urinary tract infection, cystitis and other (Hematuria) Lab
[2020-12-19 18:59] VITALS: BP 178/77; PULSE 67; RESP 21; O2SAT 97
== END 2020-12-19 19:00 | disposition home or self-care (01) ==
PROVIDERS: Emergency Provider Emergency Medicine; PCP Internal Medicine
DX: N39.0 Urinary tract infection, site not specified (principal); J45.909 Unspecified asthma, uncomplicated; I10 Essential (primary) hypertension
CPT/HCPCS: 36415; 80048; 81001; 81025; 85025; 87077; 87086; 87088; 87186; 99283

== ENCOUNTER 2021-01-04 12:06 | Emergency (ER) | payer OTHER, SELFPAY ==
--- NOTE | ~2021-01-04 | XR_ITS ---
XR chest 2V DATE: 01/04/2021 13:48 INDICATION: Cough, shortness of breath, right-sided chest pain TECHNIQUE: PA and lateral views COMPARISON: 12/10/2021 view chest 02/12/2020 CT pulmonary scan FINDINGS: Normal heart size. Minimal aortic unfolding. No hilar or mediastinal enlargement. No pulmonary infiltrate or consolidation, pleural effusion or pulmonary vascular congestion or pneumo thorax. Mild degenerative spurring of the thoracic spine. IMPRESSION: No active cardiopulmonary disease Reviewed, dictated and finalized at location B.
[2021-01-04 12:15] VITALS: BP 156/61; PULSE 70; RESP 16; TEMP 36.2; O2SAT 98
[2021-01-04 12:26] VITALS: O2SAT 98
[2021-01-04 13:22] VITALS: PULSE 77; RESP 16
[2021-01-04] MEDS: IPRATROPIUM BR 0.02% INH SOLN 0.5 MG/2.5 ML VIAL INHALATION (13:22)
[2021-01-04] MEDS: ALBUTEROL SULFATE NEB 2.5 MG/0.5 ML INH 5 MG INHALATION (13:22)
[2021-01-04 13:30] VITALS: PULSE 81; RESP 16
[2021-01-04 15:00] VITALS: BP 173/70; PULSE 73; RESP 16; O2SAT 95
--- NOTE | 2021-01-04 16:19 | ED.GENADULT ---
HPI - General Adult General Chief complaint: Upper Respiratory Infection Stated complaint: URI, SOB Time Seen by Provider: 01/04/21 12:53 History of Present Illness HPI narrative: Patient is a 50-year-old female who presents to the ER with sinus congestion as well as cough. Ongoing for 10 days. Recently been started on prednisone with minimal improvement. Has been using albuterol nebulizer treatments with minimal improvement. No fevers or chills or sweats. Concerned she may have pneumonia. Had a negative Covid swab 2 days ago. Related Data Home Medications Medication Instructions Recorded Confirmed amlodipine 5 mg PO DAILY 02/12/20 08/10/20 bupropion HCl [Wellbutrin SR] 150 mg PO BID 02/12/20 08/10/20 lisinopril 5 mg PO DAILY 02/12/20 08/10/20 montelukast 10 mg PO DAILY 02/12/20 08/10/20 omeprazole 40 mg PO DAILY 02/12/20 08/10/20 pravastatin 40 mg PO HS 02/12/20 08/10/20 trazodone 50 mg PO HS 02/12/20 08/10/20 fluticasone furoate 100 1 inh INHALATION DAILY 05/01/20 08/10/20 mcg-vilanterol 25 mcg/dose inhalation powder Allergies Allergy/AdvReac Type Severity Reaction Status Date / Time Penicillins Allergy Unknown Hives / Verified 05/01/20 13:10 Red Face Review of Systems Review of Systems: All systems reviewed & are unremarkable except as noted in HPI and below Constitutional: Constitutional: Denies chills, Denies fever(s) and Denies weakness ENT: Reports nasal congestion and Denies sore throat Cardiovascular: Cardiovascular: Denies chest pain and Denies radiating jaw, neck or arm pain Respiratory: Respiratory: Reports cough, Denies dyspnea and Denies wheezing PMFSH Past Medical History Medical History Asthma Hypertension Surgical History Surgical History History of ankle surgery Social History Social History Smoking status: Former smoker Alcohol intake: current Drinks per week: 10 Substance use: never Substance use type: does not use Gender identity (if verbalized by the patient): Female Spiritual care concerns: No Exam Narrative: Exam Narrative: GENERAL: Well-appearing, well-nourished, and in no acute distress. HEAD: Normocephalic, atraumatic. ENT: Mucous membranes moist. CHEST: Rhonchi bilaterally. No respiratory distress. HEART: Regular rate and rhythm. Normal peripheral pulses. ABDOMEN: Soft, nontender, nondistended. EXTREMITIES: Normal range of motion. No edema. SKIN: Warm, dry, no rash. NEURO: Alert and oriented x3. PSYCH: Normal mood and affect. Course Course Emergency Course: Patient's breathing markedly improved after nebulizer treatment. Discharge home with [facility]. Vital Signs Vital signs: Vital Signs Temperature 97.2 F L 01/04/21 12:15 Pulse Rate 70 01/04/21 12:15 Respiratory Rate 16 01/04/21 12:15 Blood Pressure 156/61 H 01/04/21 12:15 Pulse Oximetry 98 01/04/21 12:15 Temperature 97.2 F L 01/04/21 12:15 Pulse Rate 73 01/04/21 15:00 Respiratory Rate 16 01/04/21 15:00 Blood Pressure 173/70 H 01/04/21 15:00 Pulse Oximetry 95 01/04/21 15:00 Medical Decision Making Vital Signs Vital Signs: Vital Signs Temperature 97.2 F L 01/04/21 12:15 Pulse Rate 70 01/04/21 12:15 Respiratory Rate 16 01/04/21 12:15 Blood Pressure 156/61 H 01/04/21 12:15 Pulse Oximetry 98 01/04/21 12:15 Temperature 97.2 F L 01/04/21 12:15 Pulse Rate 73 01/04/21 15:00 Respiratory Rate 16 01/04/21 15:00 Blood Pressure 173/70 H 01/04/21 15:00 Pulse Oximetry 95 01/04/21 15:00 Imaging Data Radiologist's impression: ITS Impressions Chest X-Ray 01/04/21 13:51 IMPRESSION: No active cardiopulmonary disease Discharge Plan Discharge Clinical Impression: Bronchitis Patient Disposition: Home, Self-Care Condition: Stable Instru
[2021-01-04 16:37] VITALS: BP 148/96; PULSE 66; RESP 16; O2SAT 98
== END 2021-01-04 16:37 | disposition home or self-care (01) ==
PROVIDERS: Emergency Provider Emergency Medicine; PCP Internal Medicine
DX: J40 Bronchitis, not specified as acute or chronic (principal); I10 Essential (primary) hypertension; Z87.891 Personal history of nicotine dependence
CPT/HCPCS: 71046; 94640; 99283

== ENCOUNTER → 2021-03-22 13:15 | Outpatient (CLI) | payer OTHER, SELFPAY ==
--- NOTE | ~2021-03-22 | XR_ITS ---
EXAMINATION: XR finger 3rd RT min 2V INDICATION: Right third finger pain, initial encounter TECHNIQUE: Three views of the right third finger are obtained. COMPARISON: None available FINDINGS: There is an oblique lucency in the lateral head of the third proximal phalanx with adjacent soft tissue swelling. No additional fracture is identified. There is mild polyarticular osteoarthrit is. IMPRESSION: 1. Oblique fracture in the lateral head of the proximal phalanx with adjacent soft tissue swelling. Reviewed, dictated and finalized at location A. IMPRESSION: 1. Oblique fracture in the lateral head of the proximal phalanx with adjacent s oft tissue swelling.
--- NOTE | ~2021-03-22 | XR_ITS ---
EXAMINATION: XR hand RT min 3V INDICATION: Right hand pain, initial encounter TECHNIQUE: Three views of the right hand are obtained. COMPARISON: None available FINDINGS: There is an oblique lucency in the lateral head of the third proximal phalanx with adjacent soft tissue swelling. No additional fracture is identified. There is mild polyarticular osteoarthrit is. IMPRESSION: 1. Oblique fracture in the lateral head of the third proximal phalanx with adjacent soft tissue swell ing. Reviewed, dictated and finalized at location A. IMPRESSION: 1. Oblique fracture in the lateral head of the third proximal phalanx with inocencio cent soft tissue swelling.
== END ==
PROVIDERS: PCP Internal Medicine; Visit Provider Internal Medicine
DX: S62.612A Displaced fracture of proximal phalanx of right middle finger, initial encounter for closed fracture (principal)
CPT/HCPCS: 73130; 73140

== ENCOUNTER → 2021-03-31 12:17 | Outpatient (CLI) | payer OTHER, SELFPAY ==
--- NOTE | ~2021-03-31 | MR_ITS ---
EXAMINATION: MR ankle RT wo con DATE: 03/31/2021 13:05 INDICATION: Spontaneous rupture of the flexor tendons of the right foot and ankle TECHNIQUE: Magnetic resonance imaging (MRI) of the right ankle was performed without intravenous cont rast. Sequences included sagittal, coronal, and axial proton-density weighted fast spin echo without and with fat saturation. COMPARISON: None. FINDINGS: Medial ankle ligaments: Small heterotopic ossicle near the deep deltoid ligament consistent with sequela of chronic sprain. A lso consistent with chronic sprain is thickening of the superficial deltoid ligament. Lateral ankle ligaments: The anterior and posterior inferior tibiofibular ligaments are normal. Mild thickening and mild incre ased signal of the anterior talofibular ligament without surrounding edema consistent with scarring r elated to chronic sprain. The calcaneofibular and posterior talofibular ligaments are normal. Tendons: Achilles tendon is normal. The peroneus longus and brevis tendons are normal. The tibialis anterior a nd extensor hallucis longus and extensor digitorum longus tendons are normal. Small amount of fluid s urrounding the otherwise normal tibialis posterior tendon consistent with mild tenosynovitis. The fle xor digitorum longus and flexor hallucis longus tendons are normal. Plantar fascia: Moderate-sized plantar calcaneal spur. There is thickening and mild increased signal of the proximal plantar aponeurosis with mild marrow edema at its calcaneal origin consistent mild acute on chronic p lantar fasciitis/enthesopathy. Bones/other: Bone alignment is normal. No fracture or pathologic marrow replacing process. Fluid: Minimal ankle and subtalar joint effusions with fluid and synovitis within multilobulated ganglion cy st arising from the posterolateral recess of the ankle and subtalar joint spaces. There is additional small calcaneocuboid joint effusion which bulges the lateral capsule of the joint space. Subcutaneou s edema along the medial aspect of the distal calf and ankle. IMPRESSION: 1. Chronic medial and lateral ankle sprains. 2. Mild acute on chronic plantar fasciitis/enthesopathy. 3. Multilobulated ganglion cyst with synovitis arising from the posterolateral recess of the ankle an d subtalar joints which could be seen in the setting of hindfoot impingement. 4. Mild tibialis posterior tenosynovitis with normal-appearing tendon. Reviewed, dictated and finalized at location B. IMPRESSION: 1. Chronic medial and lateral ankle sprains. 2. Mild acute on chronic plantar fasciitis/enthesopathy. 3. Multilobulated ganglion cyst with synovitis arising from the posterolateral recess of the ankle and subtalar joints which could be seen in the setting of h indfoot impingement. 4. Mild tibialis posterior tenosynovitis with normal-appearing tendon.
== END ==
PROVIDERS: PCP Internal Medicine; Visit Provider Orthopaedic Surgery
DX: M66.371 Spontaneous rupture of flexor tendons, right ankle and foot (principal); S93.491A Sprain of other ligament of right ankle, initial encounter; M67.471 Ganglion, right ankle and foot
CPT/HCPCS: 73721

== ENCOUNTER → 2022-10-25 11:11 | Outpatient (CLI) | payer OTHER, SELFPAY ==
--- NOTE | ~2022-10-25 | MM_ITS ---
EXAMINATION: MM screening sherlyn BI w charles HISTORY: Screening mammogram TECHNIQUE: Craniocaudal and mediolateral oblique 3-D tomosynthesis images were obtained and synthetic 2-D images were generated. CAD analysis was submitted and interpreted. COMPARISON: 05/25/2020 BREAST PARENCHYMAL COMPOSITION: The breasts are almost entirely fatty. FINDINGS: No suspicious mass, calcification, or architectural distortion are identified in either bala ast to suggest malignancy. There has been no suspicious interval change. IMPRESSION: 1. No mammographic evidence of malignancy. 2. Recommend routine screening mammography in one year. BI-RADS Category 1: Negative Reviewed, dictated and finalized at location A.
--- NOTE | ~2022-10-25 | DEXA_ITS ---
Bone Density Report Name: NGOC LAWRENCE Age: 52 Sex: Female Ethnicity: White Date of : 1970 Indication: postmenopausal; screening for osteoporosis; asthma or emphysema; Referring Provider: JOEY, BROOKS De Souza Study: Bone densitometry was performed. Exam Date: October 25, 2022 Accession number: [id number] Bone Density: Region BMD T-score Z-score Classification AP Spine (L1-L4) 1.117 0.6 1.7 Normal Femoral Neck (Left) 0.866 0.2 1.2 Normal Total Hip (Left) 1.135 1.6 2.2 Normal Femoral Neck (Right) 0.897 0.4 1.5 Normal Total Hip (Right) 1.162 1.8 2.5 Normal Total Hip Mean 1.149 1.7 2.4 Normal World Health Organization criteria for BMD impression classify patients as: Normal (T-score at or above -1.0), Osteopenia (T-score between -1.0 and -2.5), or Osteoporosis (T-score at or below -2.5). 10-year Fracture Risk: FRAX not reported because: All T-scores for Spine Total, Hip Total, Femoral Neck at or above -1.0 Clinical Information Provided by Patient: Has the following medical conditions: Asthma or Emphysema Patient maximum height was 60 Menopause Age: 48 No regular weight bearing exercise Drinks caffeinated beverages Onset of menses at age 12 Number of children 2 Impression: The patient has normal bone mass. Discussion: BONE DENSITY IS ABOVE THE MINIMUM DESIRABLE LEVEL AT ALL SKELETAL SITES TESTED. This patient?s bone mineral density is above the minimum desirable level (T-score -1.0 or better) at all sites measured. The patient should follow a healthful lifestyle (good nutrition with adequate calcium and vitamin D, and appropriate weight-bearing exercise). Follow-Up: Consider repeating this study in 5 years or sooner if there is some new clinical indication. Reported by: [facility] on 10/25/2022 11:37:00 AM. Reviewed, dictated and finalized at location A. [facility]ENTERK[facility]zy
== END ==
PROVIDERS: PCP Internal Medicine; Visit Provider Internal Medicine
DX: Z12.31 Encounter for screening mammogram for malignant neoplasm of breast (principal); M81.0 Age-related osteoporosis without current pathological fracture
CPT/HCPCS: 77063; 77067; 77080

== ENCOUNTER → 2022-12-29 10:55 | Outpatient (CLI) | payer OTHER, SELFPAY ==
--- NOTE | ~2022-12-29 | MR_ITS ---
MRI of the lumbar spine Clinical History: Radiculopathy Technique: Axial T2-weighted images, and sagittal T1-weighted, T2-weighted, and T2 fat-sat images wer e acquired. Findings: There is no fracture or subluxation of the lumbar spine. Vertebral bodies maintain normal h eight and alignment. No suspicious bone marrow signal reality seen. At L1-L2, there is no disc bulge or herniation. There is mild facet arthropathy. No central canal nathalie nosis or neural foraminal narrowing. At L2-L3, there is minimal disc bulge and mild facet arthropathy. No central canal stenosis or neural foraminal narrowing. At L3-L4, there is no disc bulge or herniation. There is minimal facet hypertrophy. No spinal canal s tenosis or neural foraminal narrowing. At L4-L5, there is no disc bulge or herniation. There is moderate to advanced facet arthropathy. No c entral canal stenosis or neural foraminal narrowing. At L5-S1, there is no significant disc bulge or herniation. There is moderate facet arthropathy. No c entral canal stenosis. There is mild to moderate left neural foraminal narrowing. Right neural forame n preserved. Paravertebral soft tissues are unremarkable. Impression: Mild degenerative spondylosis, as detailed above. Reviewed, dictated and finalized at location M. Impression: Mild degenerative spondylosis, as detailed above.
== END ==
PROVIDERS: PCP Internal Medicine; Visit Provider Internal Medicine
DX: M47.26 Other spondylosis with radiculopathy, lumbar region (principal)
CPT/HCPCS: 72148

== ENCOUNTER 2023-08-02 00:58 | Day surgery (SDC) | payer OTHER, SELFPAY ==
--- NOTE | 2023-07-18 15:20 | PC.NURSE ---
Report to the Outpatient Waiting Room, entrance under the green pavilion located off [facility], at time 0800 on date 08/02/23. Planned Procedure Time: 1000. Time changes happen often and if your time is changed the preop area will call you the afternoon before. - You and your visitor will be asked to self-screen and do not enter if you have any COVID symptoms. - A mask is optional within the hospital at this time. Patients may have clear liquids (water, carbonated beverages, clear teas, apple juice) until 3 hours prior to surgery with a maximum of 20 ounces. - No food from midnight until time of surgery Take the following medications with a SIP of water the morning of surgery: AMLODIPINE, BUPROPION, INHALER, PAIN PILL IF NEEDED DO NOT STOP ANY OF YOUR OTHER PRESCRIPTION MEDICATIONS PRIOR TO SURGERY ?EXCEPT THE FOLLOWING Medications to discontinue per physician: N/A Date to take last dose: N/A Please no make-up, nail lao, hairspray, perfume, deodorant, or body powder the day of surgery. No jewelry (including any body piercings) or valuables the day of surgery, leave them at home. Please take a shower or bath the night before, or the morning of, surgery with an antibacterial soap. Wear comfortable, loose fitting clothing. - Jewelry must be removed prior to entering the operating room. Rings and piercings that are not removed may be cut off. - The hospital will not accept responsibility for valuables. - Please leave all valuables, including medications, at home the day of surgery. If you are going home after surgery, a licensed milk wagon driver must drive you home. - NO public transportation without another adult if you receive anesthesia. - We recommend that an adult stay with you for 24 hours following discharge. - We also recommend that you do not drive, make important decision, drink alcoholic beverages, or take any drugs that were not prescribed by your health care provider for at least 24 hours after your discharge time. Follow any additional instructions given to you from your surgeon. If you or anyone in your household have experienced Covid symptoms in the past week, please notify your surgeon or the nurse liaison at the phone number below for possible testing. Telephone instructions given to PT Estrada LAWRENCE and asked if any additional questions and then verbalized understanding. Patient advised to call surgeon office or pre surgery nurse liaison [phone] if any additional questions.
[2023-08-02 08:16] VITALS: BP 147/47; PULSE 70; RESP 18; TEMP 36.4
[2023-08-02 08:18] VITALS: BP 162/85
[2023-08-02] MEDS: LACTATED RINGERS 1,000 ML 30 ML IV CONT (08:42)
[2023-08-02] MEDS: ACETAMINOPHEN 500 MG TABLET 1000 MG PO (08:43)
--- NOTE | 2023-08-02 08:50 | WPDANESEPPF ---
Anes - Initial Pre Proc Eval Procedure: Operation Date: 08/02/23 10:00 Proposed Procedures p Hysteroscopy, Dilation and Curettage - Jose Alejandro Stapleton MD Date/Time: 08/02/23 08:50 Surgeon: Jose Alejandro Stapleton MD Pre Op Diagnosis: post menopausal bleeding Patient Data Age: 53 Gender: F Height: 1.52 m Weight: 123.8 kg Last Vital Signs Temp 36.4 C 08/02/23 08:16 Pulse 70 08/02/23 08:16 Resp 18 08/02/23 08:16 BP 162/85 H 08/02/23 08:18 Allergies Allergy/AdvReac Type Severity Reaction Status Date / Time Penicillins Allergy Unknown Hives / Verified 08/02/23 08:48 Red Face Home Medications Medication Instructions Recorded Confirmed Type amlodipine 5 mg tablet 5 mg PO DAILY 02/12/20 08/02/23 History bupropion HCl 150 mg tablet,12 hr 150 mg PO BID 02/12/20 08/02/23 History sustained-release (Wellbutrin SR) montelukast 10 mg tablet 10 mg PO DAILY 02/12/20 08/02/23 History omeprazole 20 mg capsule,delayed 40 mg PO DAILY 02/12/20 08/02/23 History release trazodone 50 mg tablet 50 mg PO HS 02/12/20 08/02/23 History atorvastatin 20 mg tablet 20 mg PO HS 07/18/23 08/02/23 History fluticasone fur. 200 mcg-umeclid 1 inh inhalation DAILY 07/18/23 08/02/23 History 62.5 mcg-vilant 25 mcg inhalat.powder (Trelegy Ellipta) hydrocodone 7.5 mg-acetaminophen 1 tablet PO TID PRN Pain 07/18/23 08/02/23 History 325 mg tablet ipratropium 0.5 mg-albuterol 3 mg 3 ml inhalation QID PRN Shortness 07/18/23 08/02/23 History (2.5 mg base)/3 mL nebulization Of Breath soln Patient hx anesthesia problems: none Family hx anesthesia problems: none Results Review: All pre-operative results and documents have been reviewed as part of the pre-operative evaluation. [facility] Past Medical History Medical History (Updated 08/02/23 @ 08:51 by Jose Kerr MD) Asthma Hypertension Morbid obesity Surgical History Surgical History History of ankle surgery Social History Social History Smoking packs per day: 0.5 Smoking cigarettes per day: 10.0 Years smoked: 20 Smoking pack-years: 10.00 Smoking status: Former smoker Tobacco type: cigarettes Smoking end date: 06/26/03 Alcohol intake: former Drinks per week: 10 Alcohol use details: QUIT APRIL 2023 Substance use: never Substance use type: does not use Living arrangements: with family Gender identity (if verbalized by the patient): Female Spiritual care concerns: No Anes - Eval Final PreProcedure Day of Procedure 08/02/23 08:50 Patient weight: super morbidly obese Heart: regular rate and rhythm Lungs: clear to auscultation Airway: Mallampati scale class III Neurological: alert and oriented Last oral intake: >/= 8 hours ASA classification: IV Emergent: no Anesthetic plan: proceed Anesthesia type and monitoring: general GIVS and standard monitoring Results Review: All pre-operative results and documents have been reviewed as part of the pre-operative evaluation. Informed Consent: The patient's anesthetic plan and its attendant risks and benefits were discussed with the patient/family/POA. Questions were solicited and answers provided to the satisfaction of the patient/family/POA.
--- NOTE | 2023-08-02 09:49 | PM.IMHP ---
H&P: HPI History of Present Illness Date/Time: 08/02/23 09:49 Chief Complaint: Postmenopausal bleeding Narrative: this patient is a 53-year-old female with postmenopausal bleeding. We were unable to perform a endometrial biopsy in the office. We have agreed perform hysteroscopy D&C at the hospital. She understands the procedure. It has been explained to her in detail. She understands the risk. It has been explained. She understands injury may occur that result in hospitalization, for surgery, and severe illness. She understands risk of hemorrhage infection. She denies any chest pain or shortness of breath. She denies any nausea, vomiting, fever, chills. Review of Systems Review of Systems: All systems reviewed & are unremarkable except as noted in HPI and below Constitutional: Constitutional: Denies chills, Denies fatigue, Denies fever(s) and Denies weakness Eyes: Eyes: Denies blurry vision, Denies change in vision, Denies loss of peripheral vision, Denies loss of vision, Denies other visual disturbances and Denies eye pain ENT: Denies vertigo, Denies dizziness, Denies hearing loss, Denies mouth pain, Denies nasal obstruction, Denies neck mass and Denies neck pain Cardiovascular: Cardiovascular: Denies chest pain, Denies diaphoresis, Denies syncope, Denies leg edema and Denies dyspnea Respiratory: Respiratory: Denies chest congestion, Denies cough, Denies hemoptysis, Denies dyspnea and Denies wheezing Gastrointestinal: Gastrointestinal: Denies abdominal pain, Denies constipation, Denies diarrhea, Denies nausea and Denies vomiting Genitourinary: Genitourinary: Denies hematuria, Denies change in libido, Denies nocturia, Denies genital lesions, Denies flank pain and Denies urinary urgency Musculoskeletal: Musculoskeletal: Denies abnormal gait, Denies back pain, Denies myalgias, Denies arthralgias, Denies joint swelling, Denies muscle weakness and Denies neck pain Integumentary/Breasts: Skin/Breast: Denies swelling, Denies breast pain, Denies breast mass, Denies dry skin, Denies nipple discharge, Denies unusual bruising and Denies jaundice Neurologic: Denies Neuro-related abnormal movements, Denies Abnormal speech present, Denies abnormal gait, Denies behavioral changes, Denies confusion, Denies vertigo, Denies dizziness, Denies syncope, Denies loss of vision, Denies memory loss, Denies convulsions and Denies weakness Psychiatric: Psychiatric: Denies abnormal sleep pattern, Denies behavioral changes, Denies change in libido, Denies confusion, Denies depression, Denies anhedonia and Denies memory loss Endocrine: Endocrine: Reports no additional endocrine complaints, Denies change in libido and Denies fatigue Hematologic/Lymphatic: Hematologic/Lymphatic: Reports no additional hematologic/lymphatic complaints Allergic/Immunologic: Allergic/Immunologic: Reports no additional allergic/immunologic complaints and Denies wheezing PMFSH Past Medical History Medical History (Updated 08/02/23 @ 09:50 by Jose Alejandro Stapleton MD) Asthma Hypertension Morbid obesity Surgical History Surgical History History of ankle surgery Social History Social History Smoking packs per day: 0.5 Smoking cigarettes per day: 10.0 Years smoked: 20 Smoking pack-years: 10.00 Smoking status: Former smoker Tobacco type: cigarettes Smoking end date: 06/26/03 Alcohol intake: former Drinks per week: 10 Alcohol use details: QUIT APRIL 2023 Substance use: never Substance use type: does not use Living arrangements: with family Gender identity (if verbalized by the patient): Female Spiritual care concerns: No Meds Home Medications and Allergies Home Medications Medication Instructions Recorded Confirmed Type amlodipine 5 mg tablet 5 mg PO DAILY 02/12/20 08/02/23 History bupropion HCl 150 mg tablet,12 hr 150 mg PO
--- NOTE | 2023-08-02 09:51 | WPDHPUPDATE1 ---
History and Physical Update Update Date/Time: 08/02/23 09:51 History and Physical has been reviewed, including an updated exam of the patient. There are NO changes in the patient's condition. Risks, benefits, and alternatives have been discussed and questions answered. Patient agrees to proceed with procedure.
[2023-08-02] MEDS: KETOROLAC 30 MG/ML VIAL (*BKC) IV PUSH (10:22)
[2023-08-02 10:37] VITALS: BP 171/75; PULSE 80; RESP 16; O2SAT 99
--- NOTE | 2023-08-02 10:48 | W.PM.PROC2 ---
Procedure Note - Detailed Date of Procedure 08/02/23 Pre-op Diagnosis post menopausal bleeding Post-op Diagnosis Same Procedure Performed Hysteroscopy D&C Surgeon Jose Alejandro Stapleton MD Anesthesia MAC Indications abnormal uterine bleeding Description of Procedure the patient was taken the operating room. She was prepped and draped in the dorsal lithotomy position after induction of mac anesthesia. A speculum was placed in the vagina. The cervix was grasped with a tenaculum. The cervix was dilated about 1 cm. The hysteroscope was inserted. The intrauterine cavity and endocervix were evaluated. Hysteroscope was withdrawn. A medium-size curette was used to curettage all the surfaces were within the endometrial cavity. the sample was collected on Telfa and sent to pathology. The hysteroscope was reinserted and the above findings were noted. Patient tolerated the procedure well. The speculum and tenaculum were removed. She was taken recovery room in stable condition. Sponge lap and needle counts were correct x2. Estimated Blood Loss 40 Drains No Packing No Pathology Yes Complications No immediate complications Condition Stable Disposition PACU
[2023-08-02] MEDS: ONDANSETRON INJ 4 MG/2 ML VIAL IV PUSH (10:57)
[2023-08-02 11:07] VITALS: BP 139/90; PULSE 76
[2023-08-02] MEDS: oxyCODONE HCL (*CRX) 5 MG TAB IR PO (11:18)
[2023-08-02 11:35] VITALS: BP 161/76; PULSE 61
[2023-08-02] MEDS: diphenhydrAMINE HCl INJ 50 MG/ML VIAL 25 MG IV PUSH (11:58)
[2023-08-02] MEDS: SCOPOLAMINE 1 MG PATCH 1 PATCH TRANSDERM (11:58)
[2023-08-02 12:05] VITALS: BP 168/82; PULSE 65
== END 2023-08-02 12:23 | disposition home or self-care (01) ==
PROVIDERS: PCP Internal Medicine; Visit Provider Obstetrics & Gynecology
PROC: 0U5B8ZZ Destruction of Endometrium, Via Natural or Artificial Opening Endoscopic (ICD-10-PCS; CPT 58563; principal; 2023-08-02 10:00)
DX: N95.0 Postmenopausal bleeding (principal); N85.8 Other specified noninflammatory disorders of uterus; I10 Essential (primary) hypertension; J45.909 Unspecified asthma, uncomplicated; Z79.51 Long term (current) use of inhaled steroids; E66.01 Morbid (severe) obesity due to excess calories; Z68.43 Body mass index [BMI] 50.0-59.9, adult; Z87.891 Personal history of nicotine dependence
CPT/HCPCS: 58558; 88305; A9270; J1200; J1885; J2250; J2405; J3010; J7120

== ENCOUNTER 2024-06-12 10:37 | Outpatient (CLI) | payer OTHER, SELFPAY ==
--- NOTE | ~2024-06-12 | US_ITS ---
EXAMINATION: US thyroid DATE: 06/12/2024 10:58 INDICATION: Mass of neck. TECHNIQUE: Multiple ultrasound images of the thyroid were obtained. COMPARISON: None. FINDINGS: The right thyroid lobe measures 4.5 x 2.4 x 1.6 cm. The left thyroid lobe measures 3.1 x 1.5 x 1.1 c m. In the left thyroid lobe, there is a 6 mm nodule. IMPRESSION: 1. Small thyroid nodule, likely not clinically significant. No follow-up is needed. Reviewed, dictated and finalized at location A. Y PLAN SELLING DISTRIBUTOR IMPRESSION: 1. Small thyroid nodule, likely not clinically significant. No follow-up is nee ded.
== END 2024-06-12 10:38 | disposition home or self-care (01) ==
LOC: MICIMG 10:37
PROVIDERS: PCP Internal Medicine; Visit Provider Internal Medicine
DX: E04.1 Nontoxic single thyroid nodule (principal)
CPT/HCPCS: 76536

== ENCOUNTER 2024-10-07 12:05 | Outpatient (CLI) | payer OTHER, SELFPAY ==
--- NOTE | ~2024-10-07 | US_ITS ---
Thyroid ultrasound. Clinical History: Thyroid nodule COMPARISON: 06/12/2024 Findings: Real-time sonography of the thyroid gland was performed. The right lobe measures 4.5 x 2.2 x 1.2 cm. The left lobe measures 3.2 x 1.2 x 1.2 cm. The isthmus is 4 mm in AP diameter. There is a 4 mm cystic nodule at the left upper pole. Impression: Stable 4 mm benign cystic nodule. No significant abnormality.. Reviewed, dictated and finalized at location . Impression: Stable 4 mm benign cystic nodule. No significant abnormality..
== END 2024-10-07 12:06 | disposition home or self-care (01) ==
LOC: MICIMG 12:06
PROVIDERS: PCP Internal Medicine; Visit Provider Internal Medicine
DX: E04.1 Nontoxic single thyroid nodule (principal)
CPT/HCPCS: 76536

== ENCOUNTER 2024-12-04 01:07 | Day surgery (SDC) | payer OTHER, SELFPAY ==
[2024-11-22 13:48] VITALS: BMI 40.0
--- OUTSIDE RECORDS SUMMARY | 2024-12-04 01:10 | XMS_ITS | Clinical Summary ---
Author Organization [facility] Address [address] [place] [address] Care Team Providers Care Aegis Console Operator Track Name Role Phone Glenroy Mckeon MD Primary Care Provider [phone] Source Comments [facility],non-owned Affiliates and Associated Physician Practices is amultiple site organization consisting of ambulatory clinics and hospital sitesin [place], [place], [place] and [place]. This disclosure is being madepursuant to the Care Everywhere program and may not contain all information available regarding this patient. 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 Gender Identity Not on file Sexual Orientation Not on file Last Filed Vital Signs Vital Sign Reading Time Taken Comments Blood Pressure 177/77 05/08/2015 12:02 PM SPRAY DRY OPERATOR Pulse 74 05/08/2015 12:02 PM SPRAY DRY OPERATOR Temperature 35.9 C (96.6 F) 05/08/2015 12:02 PM SPRAY DRY OPERATOR Respiratory Rate 15 05/08/2015 12:02 PM SPRAY DRY OPERATOR Oxygen Saturation 99% 05/08/2015 12:02 PM SPRAY DRY OPERATOR Inhaled Oxygen Concentration - - Weight 108.9 kg (240 lb) 05/08/2015 12:02 PM SPRAY DRY OPERATOR Height 152.4 cm (5') 05/08/2015 12:02 PM SPRAY DRY OPERATOR Body Mass Index 46.87 05/08/2015 12:02 PM SPRAY DRY OPERATOR Plan of Treatment Health Maintenance Due Date Last Done Comments COLOGUARD (AGES 45-75) - COL ON CA SCREENING 1968 COLON MONITORING 1968 COLONOSCOPY - COLON CA SCREENING 1968 CT COLONOGRAPHY - COLON CA SCREENING 1968 Colorectal Cancer Screening 1968 FIT - COLON CA SCREENING 1968 FLEX SIG - COLON CA SCREENING 1968 LIPID TESTING 1968 MAMMOGRAM 1968 PAP SMEAR 1968 HIV SCREENING 02/04/1983 HEPATITIS C SCREENING 01/31/1986 DTAP/TDAP/TD VACCINES (1 - Tdap) 02/04/1987 HEPATITIS B VACCINE (1 of 3 - 19+ 3-dose series) 02/04/1987 PNEUMOCOCCAL VACCINE 50+ (1 of 1 - PCV) 02/04/2018 ZOSTER VACCINE (1 of 2) 02/04/2018 COVID-19 VACCINE (1 - 2023-2 5 season) 2024 DEPRESSION SCREENING 06/26/2024 INFLUENZA VACCINE (Season Ended) 2025 HIB VACCINE Aged Out No longer eligi ble based on patient's age to complete this topic HPV VACCINE Aged Out No longer eligi ble based on patient's age to complete this topic MENINGOCOCCAL (Group B) VACC INE SHARED DECISION-MAKING Aged Out No longer eligibl e based on patient's age to complete this topic MENINGOCOCCAL GROUPS A/C/Y/W VACCINE Aged Out No longer eligible b ased on patient's age to complete this topic Insurance [employer] [facility] [employer] SEL[employer] PAY NO INSURANCE Member Subscriber Plan / Payer (Ef fective for All Dates) Name:Brittney Marmolejo L Member ID:Not on file Relation to Subscriber:Not on file Name:BRITTNEY MARMOLEJO Subscriber ID:Not on file Address: [facility] [place] [address] Payer ID:Not on file Group ID:Not on file Type:Self Pay Address: [place], [place] [facility] SELF PAY NO INSURANCE Member Subscriber Plan / Payer (Ef fective for All Dates) Name:Brittney Marmolejo Member ID:Not on file Relation to Subscriber:Not on file Name:BRITTNEY MARMOLEJO Subscriber ID:Not on file Address: [facility] [place] Payer ID:Not on file Group ID:Not on file Type:Self Pay Address: [place], [place] [facility] SELF PAY NO INSURANCE Member Subscriber Plan / Payer (Ef fective for All Dates) Name:Francie Brittney Toribio Member ID:Not on file Relation to Subscriber:Not on file Name:BRITTNEY MARMOLEJO Subscriber ID:Not on file Address: [address] [place] [id number] Payer ID:Not on file Group ID:Not on file Type:Self Pay Address: [place], [place] Care Teams Aegis Console Operator Track Relationship Specialty Start Date End Date Glenroy Mckeon MD [address] [place] [address] [address] [place] [address] PCP - General 03/20/19
--- OUTSIDE RECORDS SUMMARY | 2024-12-04 01:10 | XMS_ITS | CONTINUITY OF CARE DOCUMENT ---
Author Name ant cain Address Unknown Organization [facility] Address [address] [place] [address] Phone [phone] Care Team Providers Care Sports Team Marketing Intern Name Role Phone Breezy Terrazas MD Unavailable [phone] BROOKS SHOOK MD Unavailable [phone] BROOKS SHOOK MD Unavailable [phone] PROBLEMS Condition Status Date Provider Notes HTN active Breezy Terrazas MD Family History of CVA or Stroke: active ? Camila Terrazas MD Family History of Hyperlipidemia: active ? Us lucy Terrazas MD Family History of Hypertension: active ? Ramón Terrazas MD Family History of Sudden Cardiac : active ? Breezy Terrazas MD Family History of Hypertension: active ? Ramón Terrazas MD Sleep apnea--on C-pap active Breezy Durand ENCOUNTERS Date Type Provider Location Encounter Diagnosis - In-person encounter Office Visit Breezy Terrazas MD [place] [facility] - In-person encounter Office Visit Breezy Terrazas MD [place] [facility] HTNFamily History of CVA or Stroke:Family History of Hyperlipidemia:Fam erich History of Hypertension:Famil y History of Sudden Cardiac :Family History of Hypertension:Sleep apnea--on C-pap VITAL SIGNS Date Observation Value Provider Body Mass Index (Ratio) 44.62 kg/m2 Ramón Terrazas MD blood pressure, cuff size large Farhat rri Scott blood pressure, diastolic 88 mm[Hg] Ke rri Mathewyordan blood pressure, systolic 128 mm[Hg] Aleksandr Mccauleyjose ayordan oxygen saturation, oximetry 97 % Chanda Mccauleyaliya respiratory rate E&M 20 /min Chanda Bueno avelinaarnaudaliya pulse rate 97 /min Chanda Bennett lder weight E&M 244 [lb_av] Chanda Bennett lder height E&M 62 [in_i] Chanda Rayolycarina er Body Mass Index (Ratio) 44.26 kg/m2 Ramón Terrazas MD blood pressure, cuff size large Ke gregorio Mccauleyaliya blood pressure, diastolic 110 mm[Hg] Ke gregorio Mccauleyaliya blood pressure, systolic 164 mm[Hg] Aleksandr Raymikey oxygen saturation, oximetry 96 % Chanda Garciaailynsaraaliya respiratory rate E&M 18 /min Chanda Bueno avelinaarnaudjose ayordan pulse rate 73 /min Chanda Rayolycarina er weight E&M 242 [lb_av] Chanda Bennett er height E&M 62 [in_i] Chanda Rayangelaailynsaracarina kylee ALLERGIES Allergy Name Onset Date Reaction Criticality Status PCN Low Criticality active HISTORY OF MEDICATION USE Medication Status Instructions Dates Provider Indications Com ments HYDROCODONE-CONSTANTINO TAMINOPHEN TABLET active as needed 2 Chanda Chavez PROAIR HFA 108 (90 Base) MCG/ACT INHALATION AEROSOL SOLUTION active 2 puffs every 4-6 hours 2 Chanda Chavez AMLODIPINE BESYLATE 5 MG ORAL TABLET active take one pill a day 2 Chnada Chavez SINGULAIR 10 MG ORAL TABLET active take one pill a day 2 Chanda Chavez WELLBUTRIN XL TABLET EXTENDED RELEASE 24 HOUR active take one pill twice a day 2 Chanda Chavez TRAZODONE HCL TABLET active once a day 2 Chanda Chavez OMEPRAZOLE TABLET DELAYED RELEASE active once a day 2 Chanda Chavez SOCIAL HISTORY Date Observation Value Provider social history E&M S moking History: Saira bird is a former smoker. Breezy Terrazas MD social history reviewed E&M revi ewed - no changes required Breezy Terrazas MD smoking, year quit 2002 Chanda flowers smoking history, tot al pack/day 8 a day Chanda Chavez cigarette use yes Chanda pisano smoking status Former smoker Chanda duke number of grandchildren Breezy Terrazas MD U ivet Terrazas MD social history reviewed E&M revi ewed - no changes required Breezy Terrazas MD smoking history, tot al pack/day 8 a day Chanda Chavez smoking, year quit 2002 Chanda flowers cigarette use yes Chanda pisano smoking status Former smoker Chanda duke FAMILY HISTORY Family Member Condition Mother Family History of Hy pertension: Father Family History of Hale dden Cardiac : Father Family History of Hy pertension: Father Family History of Hy perlipidemia: Father Family History of Di abetes: Father Family History of CV A or Stroke: INSURANCE PROVIDERS Payer name Policy type / Coverage type [facility] ID [id number] ADVANCE DIRECTIVES Name Date DISCUSSED - NO DECISION MADE TREATMENT PLAN Date Name Performer Cardiology Follow up Breezy alanis MD Cardiology Follow up :Patient's amlodipine was increased to 10mg at last visit, but she reported dizziness. At that time it was decreased to 5mg and it has been well controlled since then. BP today: 128/88 P rior BP: 164/110 (04/06/2017) Breezy Terrazas MD [facility]iology Hospital Follow up :C ontinue on CPAP. Breezy Terrazas MD [facility] Follow up :C ontinue on CPAP Breezy Terrazas MD [facility] Hospital Follow up :BP today: 164/110 Has a hx of elevated blood pressure since last April. Ambulatory monitor showed avg BP of 149/74.5. Will increase amlodipine to 5mg twice a day. Breezy Terrazas MD HISTORY OF PROCEDURES Procedure Date Procedure Name Provider Procedure Notes S rodrick SNOMED-CT: 06902255 Physical Exam, Performed: Pulse Exam of Foot Breezy Terrazas MD completed SNOMED-CT: 568472622 [id number] Current Medications Documented Breezy Terrazas MD completed SNOMED-CT: 77912857 Physical Exam, Performed: Pulse Exam of Foot Breezy Terrazas MD completed EKG Breezy Terrazas MD completed SNOMED-CT: 116544214 667976 Current Medications Documented Breezy Terrazas MD completed
--- OUTSIDE RECORDS SUMMARY | 2024-12-04 01:10 | XMS_ITS | Data Portability ---
Author Organization [facility] Address [address] [place] [address] [place] [address] Care Team Providers Care Electrician Constructor Supervisor Name Role Phone BROOKS SHOOK Primary Care Provider Assessment No assessment recorded. Plan of Treatment Reminders Order Date Submit Date Provider Last Modified By Organization Details Last Modified Time Details Appointments [facility] 2024 08:30A Vamsi DE LEÓN MD Not available Not available Not available Lab test, urine 2023 024 [address], [address], [place], [address], 07/06/2023 12:10:59 Referral None recorded. Procedures None recorded. Surgeries dilation and curettage with hysterosc opy (SURG) 2023 024 [facility], [address], [place], [address], 08/02/2023 12:12:51 Imaging US, pelvis 2023 024 [email or web address] [address], [address], [place], [address], 07/05/2023 15:46:27 US, transvagi nal 2023 024 [email or web address] [address], [address], [place], [address], 07/05/2023 15:46:27 Medication Orders Prometriu m 200 mg capsule 2023 024 [id number], [address], [place], [address], 07/04/2023 15:12:41 Patient TargetsNo targets recorded. Patient InstructionsNo instructions recorded. Reason for Referral None Reported. Results Created Date Observation Date Name Description Value Unit Range Abnormal Flag Note LastModifiedBy Organization Detail LastModifiedTime 07/06/19 24 07/06/2023 pregn mattie test, urine HCG negati ve Not Available [place] [address], [place], [address], 07/06/2023 12:10:48 07/05/19 24 07/05/2023 US, pelvi s No observ ation record ed. [email or web address] [address] [address], [place], [address], 07/05/2023 13:07:16 07/05/19 24 07/05/2023 US, trans vagin al No observ ation record ed. [email or web address] [facility] [address], [place], [address], 07/05/2023 13:07:06 07/05/19 24 07/05/2023 US, pelvi s No observ ation record ed. [email or web address] [address], [place], [address], 07/05/2023 15:44:04 Result Notes None recorded. Procedures Surgical History Date Name Laterality Status Provider Name and Address Organization Details Recorded Time 08/02/19 24 DILATION AND CURETTAGE WITH HYSTEROSCOPY (SURG) completed Karen Gautam [facility] 08/02/2023 17:33:06 07/06/19 24 Endometrial Biopsy completed Darlene [facility] 07/06/2023 12:02:50 01/25/20 23 Date of Last Mammogram completed [facility] 07/04/2023 14:35:54 01/25/20 23 Most Recent Bone Density completed [facility] 07/04/2023 14:35:54 11/25/19 19 completed [facility] 07/04/2023 14:35:54 11/25/19 19 Date of Last Colonoscopy completed [facility] 07/04/2023 14:35:54 06/26/19 16 Date of Last Pap Smear completed [facility] 07/04/2023 14:50:18 Tonsillectomy completed [facility] 07/04/2023 14:36:21 Tubal Ligation completed [facility] 07/04/2023 14:36:21 Caesarean Section completed [facility] 07/04/2023 14:36:21 Colonoscopy completed [facility] 07/04/2023 14:36:21 Carpal tunnel surgery completed [facility] 07/04/2023 14:53:08 repair of meniscus completed [facility] 07/04/2023 14:53:41 partial fasciectomy of plantar fascia completed [facility] 07/04/2023 14:54:46 Imaging Results None recorded. Procedure Notes None recorded. Medical Equipment None Reported. Allergies Allergen ID Allergen Name Allergen Category Reaction Reaction Severity Criticality Documentation Date Start Date Code Code System Note Provider Name and Address Organization Details Recorded Time 64808 Product containin g penicilli n (product) medicatio n abdominal pain vomiting Not available Not available Not available 07/04/2023 05521 8001 SNOMED [facility] 14:55:28 Medications Name Sig Start Date Stop Date Status Note LastModified by Organization Details LastModified Time trazodone 50 mg tablet TAKE 1 TABLET BY MOUTH EVERYDAY AT BEDTIME active Not Available Not Available No t Available azithromycin 250 mg tablet TAKE 2 TABLETS BY MOUTH TODAY, THEN TAKE 1 TABLET DAILY FOR 4 DAYS active Not Available Not Available No t Available benzonatate 200 mg capsule TAKE 1 CAPSULE BY MOUTH THREE TIMES A DAY active Not Available Not Available No t Available valacyclovir 1 gram tablet TAKE 2 TABLETS BY MOUTH TWICE A DAY FOR 1 DAY active Not Available Not Available No t Available meloxicam 15 mg tablet TAKE 1 TABLET BY MOUTH EVERY DAY WITH FOOD NEEDED active Not Available Not Available No t Available Wellbutrin SR 150 mg tablet, 12 hr sustained-rele ase active Not Available Not Available Not Available amlodipine 5 mg tablet active Not Available Not Available No t Available hydrocodone 7.5 mg-acetaminoph en 325 mg tablet TAKE 1 TABLET BY MOUTH THREE TIMES DAILY active Not Available Not Available No t Available progesterone micronized 200 mg capsule TAKE 1 CAPSULE BY MOUTH EVERY DAY FOR 12 DAYS 2023 active Not Available Not Available Not Avai lable montelukast 10 mg tablet TAKE 1 TABLET BY MOUTH EVERY DAY active Not Available Not Available No t Available methylpredniso lone 4 mg tablets in a dose pack TAKE 6 TABLETS ON DAY 1 DIRECTED ON PACKAGE AND DECREASE BY 1 TAB EACH DAY FOR A TOTAL OF 6 DAYS active Not Available Not Available No t Available Trazodone 50 mg tablet active Not Available Not Available No t Available budesonide-for moterol HFA 160 mcg-4.5 mcg/actuation aerosol inhaler INHALE 2 PUFFS TWICE A DAY RINSE MOUTH AFTER USE active Not Available Not Available No t Available Dulera 200 mcg-5 mcg/actuation HFA aerosol inhaler INHALE 2 PUFFS BY MOUTH EVERY DAY active Not Available Not Available No t Available FIRST-Omeprazo le 2 mg/mL oral suspension active Not Available Not Available N ot Available Wixela Inhub 250 mcg-50 mcg/dose powder for inhalation INHALE 1 PUFF BY MOUTH EVERY DAY active Not Available Not Available No t Available Trelegy Ellipta 200 mcg-62.5 mcg-25 mcg powder for inhalation INHALE 1 PUFF EVERY DAY active Not Available Not Available No t Available Vitals Date Recorded Body height Body mass index (BMI) Body weight Systolic blood pressure Diastolic blood pressure Provider Name and Address Organization Details Last Updated DateTime 07/04/2023 152.4 cm 54.3 kg/m2 882265.6 8 g 183 mm[Hg] 90 mm[Hg] [facility] 4 14:48:52 Date Recorded Body height Body mass index (BMI) Body weight Systolic blood pressure Diastolic blood pressure Provider Name and Address Organization Details Last Updated DateTime 07/06/2023 152.4 cm 54.3 kg/m2 210475.6 8 g 191 mm[Hg] 83 mm[Hg] [facility] 4 12:02:34 Date Recorded Body height Body mass index (BMI) Body weight Systolic blood pressure Diastolic blood pressure Provider Name and Address Organization Details Last Updated DateTime 08/08/2023 152.4 cm 54.3 kg/m2 033400.6 8 g 176 mm[Hg] 80 mm[Hg] [facility] 11:29:28 Social History Question Answer Notes LastModified by Babelgumizat ion Details LastModified Time Tobacco Smoking Status Former Smoker Stephanie Guerinana lilia botello, [facility] 07/06/2023 11:41:59 How Many Years Have You Consumed Alcohol? 35 Information not available 07/04/2023 Are You Blind Or Do You Have Difficulty Seeing? No Information not available 07/04/2023 What Is Your Level Of Caffeine Consumption? Occasional Information not available 07/04/2023 How Much Tobacco Do You Chew? None Information not available 07/04/2023 In The 14 Days Before Symptom Onset, Have You Had Close Contact With A Laboratory-confir med COVID-19 While That Case Was Ill? No Information not available 07/04/2023 In The 14 Days Before Symptom Onset, Have You Had Close Contact With A Person Who Is Under Investigation For COVID-19 While That Person Was Ill? No Information not available 07/04/2023 Have You Been To An Area Known To Be High Risk For COVID-19? No Information not available 07/04/2023 Are You Deaf Or Do You Have Serious Difficulty Hearing? No Information not available 07/04/2023 What Type Of Diet Are You Following? REGULAR Information not available 07/04/2023 What Is The Highest Grade Or Level Of School You Have Completed Or The Highest Degree You Have Received? [id number] Information not available 07/04/2023 Are There Any Guns Present In Your Home? Yes Information not available 07/04/2023 Do You Use Protection During Sex? No Information not available 07/04/2023 Do You Use Your Seat Belt Or Car Seat Routinely? Yes Information not available 07/04/2023 Do You Have Smoke And Carbon Monoxide Detectors In Your Home? Yes Information not available 07/04/2023 At What Age Did You Start Smoking Tobacco? 10 Information not available 07/04/2023 How Much Tobacco Do You Smoke? No Information not available 07/04/2023 Do You Use Sunscreen Routinely? Yes Information not available 07/04/2023 How Many Years Have You Smoked Tobacco? 20 Information not available 07/04/2023 Have You Used IV Drugs? No Information not available 07/04/2023 Sex: Unknown Functional Status Question Answer Note LastModified by Organizat ion Details LastModified Time Do you use any illicit or recreational drugs? No Information not available 07/04/2023 What is your level of alcohol consumption? Occasional Information not available 07/04/2023 Are you able to walk? YESWOREST Information not available 07/04/2023 What is your occupation? Retired Information not available 07/04/2023 What is your exercise level? Occasional Information not available 07/04/2023 Mental Status Question Answer Note LastModified by Organization D etails LastModified Time Do you feel stressed (tense, restless, nervous, or anxious, or unable to sleep at night)? [id number] Information not available 07/04/2023 Family History Relationship Description Onset Age of this Age Resolved Age Notes LastModified by Organization Details LastModified Time Mother Disorder of lung Not available 2023 14:35:30 Mother Hypertensive disorder Not available 2023 14:35:30 Brother Heart disease Not available 2023 14:35:30 Brother Substance abuse Not available 2023 14:35:30 Paternal Grandfather Diabetes mellitus Not available 2023 14:35:30 Father Hypertensive disorder Not available 2023 14:35:30 Father Heart disease Not available 2023 14:35:30 Father Diabetes mellitus Not available 2023 14:35:30 Medical History Condition Response Anxiety Disorder Y Allergies (Food, seasonal, environmental ) Y Polyps Y High Cholesterol Y Acid Reflux (GERD) Y History of abnormal pap N Hypertension Y Asthma Y Gynecological History Statement/Question Response Date of Last Mammogram 01/24/2023 Date of LMP 06/29/2023 Y On BCP's at Conception? N STIs/STDs N Was last menstrual period normal N HPV Vaccine N Duration of Flow (days) 7 Current Control Method Tubal Ligat ion Age at First Child 23 If Post Menopausal, Age at Menopause 43 Date of Last Colonoscopy 11/24/2018 Frequency of Cycle (Q days) 7 Most Recent Bone Density 01/24/2023 Sexually Active? Y Date of DEXA bone scan 11/24/2018 Age of first menstrual cycle 11 Date of Last Pap Smear 06/26/2015 Sexual Problems? Y LMP Approximate 11/24/2018 N Obstetrics History GPAL:G 2 P 2 0 0 2 Type Value Full Term 2 Living 2 Total 2 Past Encounters Encounter ID Performer Location Encounter Start Date Encounter Closed Date Diagnosis/Indication Diagnosis SNOMED-CT Code Diagnosis ICD10 Code Diagnosis Note [id number] Ever De León MD [facility] [address] [address] 07/04/2023 14:12:24 07/04/2023 15:40:28 Postmenopausal bleeding 59747467 N95.0 this patient is a 53-year-ol d female who presents for bleeding. She has some pretty significan t bleeding for the past 5 days. It has been heavy at times. She denies any nausea, vomiting, fever, chills. She denies any chest pain or shortness of breath. We discussed risk of endometria l cancer. She is obese and has a history of irregular bleeding at a younger age. She is had 2 children. She denies any history of abnormal Pap smears. She went through menopause at a fairly normal time. She was about 45 years old. Talked about the evaluation of postmenopa usal bleeding. Talked about ultrasound and endometria l biopsy. She will return for ultrasound and endometria l biopsy. We spent more than 20 minutes face-to-fa ce. More than 50% was counseling . She will have exam at the time of biopsy. [id number] Ever De León MD [facility] [address] [address] 07/05/2023 12:15:21 07/05/2023 13:10:19 Postmenopausal bleeding [id number] N95.0 this patient is a 53-year-ol d female who presents for bleeding. She has some pretty significan t bleeding for the past 5 days. It has been heavy at times. She denies any nausea, vomiting, fever, chills. She denies any chest pain or shortness of breath. We discussed risk of endometria l cancer. She is obese and has a history of irregular bleeding at a younger age. She is had 2 children. She denies any history of abnormal Pap smears. She went through menopause at a fairly normal time. She was about 45 years old. Talked about the evaluation of postmenopa usal bleeding. Talked about ultrasound and endometria l biopsy. She will return for ultrasound and endometria l biopsy. We spent more than 20 minutes face-to-fa ce. More than 50% was counseling . She will have exam at the time of biopsy. [id number] Ever De León MD [facility] [address] [address] 07/06/2023 11:41:35 07/07/2023 07:51:37 Screening procedure [id number] Z13.9 Postmenopa usal bleeding [id number] N95.0 patient had failed endometria l biopsy today. To technicall y difficult to perform. We agreed to perform hysterosco py D and C at the hospital. We spent 20 minutes face-to-fa ce. More than 50% was counseling . I explained the procedure to the patient in detail. We agreed to perform surgery. She will proceed with hysterosco py D&C. [id number] Ever De León MD [facility] [address] [address] 08/08/2023 11:00:04 08/08/2023 12:01:46 Postmenopausal bleeding 04189212 N95.0 this patient is a 53-year-ol d female presents for follow-up son Spostmenop ausal bleeding. She had hysterosco pic evaluation of the uterus. It appeared normal but atrophic. The biopsy confirm that. No malignancy on biopsy. Atrophic endometriu m. She has not bleeding. We agreed to observe for bleeding. We will remedy her bleeding if it persist. he will follow up for well-woman exam. Health Concerns Section Related Observation LastModified by Organization Detai ls LastModified Time None Recorded Concern Status LastModified by Organization Details LastModified Time None Recorded Advance Directives Directive None Recorded Payers Encounter Date Sequence Insurance Name Policy Number Policy Mariano Covered Member ID Mariano Member ID Guarantor Name 07/04/2023 1 [employer] HEALTH - AETNA (POS II) [id number] Michael Chen Francie [id number] [facility] 07/05/2023 1 [employer] HE[employer] - [employer]ETNA ([place] II) [id number] Michael Chen Francie [id number] [facility] 07/06/2023 1 [employer] HE[employer] - [employer]ETNA ([place]) [id number] Michael Nomiku Francie [id number] [facility] 08/08/2023 1 [employer] HE[employer] - [employer]ETNA ([place]) [id number] Michael Nomiku Francie [id number] [facility] Notes Date Note Type Note Provider Name and Address Organization Details Recorded Time 07/04/2023 text/html this patient is a 53-year-old female who presents for bleeding. She has some pretty significant bleeding for the past 5 days. It has been heavy at times. She denies any nausea, vomiting, fever, chills. She denies any chest pain or shortness of breath. We discussed risk of endometrial cancer. She is obese and has a history of irregular bleeding at a younger age. She is had 2 children. She denies any history of abnormal Pap smears. She went through menopause at a fairly normal time. She was about 45 years old. Talked about the evaluation of postmenopausal bleeding. Talked about ultrasound and endometrial biopsy. She will return for ultrasound and endometrial biopsy. We spent more than 20 minutes [id number]. More than 50% was counseling. She will have exam at the time of biopsy. Ever De León MD [address], [place], [address], [facility] 07/04/2023 15:16:46 07/06/2023 text/html 53-year-old fema le with postmenopausal bleeding who presents for endometrial biopsy. She understands the procedure. Has been explained to her in detail. She understands the risks, benefits, and alternatives. Ever De León MD [address], [place], [address], [facility] 07/06/2023 18:57:06 08/08/2023 text/html this patient is a 53-year-old female presents for follow-up son Spostmenopausal bleeding. She had hysteroscopic evaluation of the uterus. It appeared normal but atrophic. The biopsy confirm that. No malignancy on biopsy. Atrophic endometrium. She has not bleeding. We agreed to observe for bleeding. We will remedy her bleeding if it persist. he will follow up for well-woman exam. Ever De León MD [address], [place], [address], [facility] 08/08/2023 12:01:17 OBGyn Episode Ob Episode Information Episode Created Date Number of Fetuses Patient Bloodtype Patient rh Status Prepregnancy Weight lbs Domestic Partner Domestic Partner Phone Father Name Disability Specialist Status 07/04/19 24 1 CLOSED Fetus Data First Name Last Name Admitted to NICU Weight (g) Sex Living Outcome Pediatric Complications Fetus ID Race Codes Race Delivery Type 3515.33 8 M Full Term [id number] Primary Dexter Calculation Initial Dexter Date Initial Exam Date Initial Exam Provider Initial Ultrasound Date Last Menstrual Period Date Ultra Sound Weeks Gestation 0 Eighteen To Twenty Week Dexter Update Ultra Sound Date Fundal Height At Umbil Quickening Date Ultra Sound Latest Weeks Gestation Final Dexter Confirmed By Final Dexter Confirmed Date Final Dexter Date Ultra Sound Latest Days Gestation 0 0 Menstrual History Last Menstrual Date Menses Monthly On Bcp Conception Prior Menses Frequency Hcg Plus Date Menarche Onset Age Delivery Information Delivery Date Delivery Type Labor Anesthesia Weeks Gestation Incision Type Labor Labor Length Hrs Delivered By Post Complications Tubal Sterilization Discharge Date Comments 3 39 Jeet breech Discharge Information Feeding Method Contraceptive Method Maternal HG B and HCT Levels Ob Episode Information Episode Created Date Number of Fetuses Patient Bloodtype Patient rh Status Prepregnancy Weight lbs Domestic Partner Domestic Partner Phone Father Name Disability Specialist Status 07/04/19 24 1 CLOSED Fetus Data First Name Last Name Admitted to NICU Weight (g) Sex Living Outcome Pediatric Complications Fetus ID Race Codes Race Delivery Type 3997.05 2704 M Full Term [id number] Repeat Dexter Calculation Initial Dexter Date Initial Exam Date Initial Exam Provider Initial Ultrasound Date Last Menstrual Period Date Ultra Sound Weeks Gestation 0 Eighteen To Twenty Week Dexter Update Ultra Sound Date Fundal Height At Umbil Quickening Date Ultra Sound Latest Weeks Gestation Final Dexter Confirmed By Final Dexter Confirmed Date Final Dexter Date Ultra Sound Latest Days Gestation 0 0 Menstrual History Last Menstrual Date Menses Monthly On Bcp Conception Prior Menses Frequency Hcg Plus Date Menarche Onset Age Delivery Information Delivery Date Delivery Type Labor Anesthesia Weeks Gestation Incision Type Labor Labor Length Hrs Delivered By Post Complications Tubal Sterilization Discharge Date Comments 9 40 Dany Discharge Information Feeding Method Contraceptive Method Maternal HG B and HCT Levels
--- OUTSIDE RECORDS SUMMARY | 2024-12-04 01:10 | XMS_ITS | Continuity of Care Document ---
Author Organization [facility] Address [address] [place] [address] Phone Care Team Providers Care Waste Cotton Cleaner Name Role Phone Larios OD, Octavio Unavailable Unavailable Procedures Procedure Date Office/outpatient Visit, Est Eye Exam Established Pt Advance Directives Directive Yes / No Effective Date File Name No Information Encounters Encounter Description Practice Location Reason(s) For Visit Diagnoses Date Provider Providers Copied on Encounter Office/outpat ient Visit, Est [facility], [address], [place], [place], [id number], tel:[phone] [facility] No Information Sep-0 8-200 9 Larios OD Octavio. [address] , [address], [place], [place], [facility], [place]. tel:[phone] [facility], [address] [place] [address] [address], [place], [place], [address], tel:[phone] [facility] No Information Sep-0 4-200 9 Larios OD Octavio. [address] , [address], [place], [address], [place]. tel:[phone] Family History Family Member Type Diagnosis Age At Onset No Information Payers Payer name Insurance type Covered green party ID Authoriza tion(s) No Information Social History Type Description Quantity Date Captured Comments Sex Female Smoking Status No Information Chief Complaint And Reason For Visit No Information Reason For Referral Reason For Referral No Information History Of Present Illness Encounter Date Complaint History Of Prese nt Illness No Information Functional Status Date Functional Assessmen t No Information Instructions Date Instruction Additional Infor mation No Information Assessments Type Assessment Date No Information Patient Care Teams Name Effective Dates (start - stop) Status Members No Information
[2024-12-04 06:24] VITALS: BP 178/68; PULSE 66; RESP 16; TEMP 36.6; O2SAT 100; BMI 39.9
[2024-12-04] MEDS: LACTATED RINGERS 1,000 ML 150 ML IV CONT (06:40)
--- NOTE | 2024-12-04 07:17 | WPDANESEPPF ---
Anes - Initial Pre Proc Eval Procedure: Operation Date: 12/04/24 07:30 Proposed Procedures p Screening Colonoscopy - Nirav Begum MD Date/Time: 12/04/24 07:17 Surgeon: Nirav Begum MD Pre Op Diagnosis: Screening Patient Data Age: 54 Gender: F Height: 1.52 m Weight: 92.9 kg Last Vital Signs Temp 36.6 C 12/04/24 06:24 Pulse 66 12/04/24 06:24 Resp 16 12/04/24 06:24 BP 178/68 H 12/04/24 06:24 Pulse Ox 100 12/04/24 06:24 O2 Del Method Room Air 12/04/24 06:24 Allergies Allergy/AdvReac Type Severity Reaction Status Date / Time Penicillins Allergy Unknown Hives / Verified 12/04/24 06:21 Red Face Home Medications ?Medication ?Instructions ?Recorded ?Confirmed ?Type amlodipine 5 mg tablet 5 mg PO DAILY 02/12/20 12/04/24 History bupropion HCl 150 mg tablet,12 hr 150 mg PO BID 02/12/20 12/04/24 History sustained-release (Wellbutrin SR) montelukast 10 mg tablet 10 mg PO DAILY 02/12/20 12/04/24 History omeprazole 20 mg capsule,delayed 40 mg PO DAILY 02/12/20 12/04/24 History release trazodone 50 mg tablet 50 mg PO HS 02/12/20 12/04/24 History atorvastatin 20 mg tablet 20 mg PO HS 07/18/23 12/04/24 History fluticasone fur. 200 mcg-umeclid 1 inh inhalation DAILY 07/18/23 12/04/24 History 62.5 mcg-vilant 25 mcg inhalat.powder (Trelegy Ellipta) hydrocodone 7.5 mg-acetaminophen 1 tablet PO TID PRN Pain 07/18/23 11/22/24 History 325 mg tablet ipratropium 0.5 mg-albuterol 3 mg 3 ml inhalation QID PRN Shortness 07/18/23 11/22/24 History (2.5 mg base)/3 mL nebulization Of Breath soln benralizumab 30 mg/mL subcutaneous 30 mg subcut ONCE 11/22/24 11/22/24 History syringe (Fasenra) tirzepatide (weight loss) 2.5 0.5 mg subcut WEEKLY 11/22/24 12/04/24 History mg/0.5 mL subcutaneous pen injector (Zepbound) Patient hx anesthesia problems: post op nausea/vomiting Family hx anesthesia problems: none Results Review: All pre-operative results and documents have been reviewed as part of the pre-operative evaluation. FOR[facility]LY [facility], [facility] Past Medical History Medical History Morbid obesity Asthma Hypertension Surgical History Surgical History History of ankle surgery Social History Social History Smoking packs per day: 0.5 Smoking cigarettes per day: 10.0 Years smoked: 20 Smoking pack-years: 10.00 Smoking status: Former smoker Tobacco type: cigarettes Smoking end date: 06/26/03 Alcohol intake: former Drinks per week: 10 Alcohol use details: QUIT APRIL 2023 Substance use: never Substance use type: does not use Living arrangements: with family Additional living arrangements comments: with sp Gender identity (if verbalized by the patient): Female Spiritual care concerns: No Anes - Eval Final PreProcedure Day of Procedure 12/04/24 07:17 Patient weight: morbidly obese Heart: regular rate and rhythm Lungs: clear to auscultation Airway: Mallampati scale class II Neurological: alert and oriented Last oral intake: >/= 8 hours ASA classification: III Emergent: no Anesthetic plan: proceed Anesthesia type and monitoring: general GIVS and standard monitoring Results Review: All pre-operative results and documents have been reviewed as part of the pre-operative evaluation. Informed Consent: The patient's anesthetic plan and its attendant risks and benefits were discussed with the patient/family/POA. Questions were solicited and answers provided to the satisfaction of the patient/family/POA.
--- NOTE | 2024-12-04 07:24 | PM.IMHP ---
H&P: HPI History of Present Illness Date/Time: 12/04/24 07:24 Chief Complaint: history of colon polyps Narrative: The patient has a history of colonic polyps, the last colonoscopy was about 5 years ago. Review of Systems Review of Systems: All systems reviewed & are unremarkable except as noted in HPI and below PMFSH Past Medical History Medical History Morbid obesity Asthma Hypertension Surgical History Surgical History History of ankle surgery Social History Social History Smoking packs per day: 0.5 Smoking cigarettes per day: 10.0 Years smoked: 20 Smoking pack-years: 10.00 Smoking status: Former smoker Tobacco type: cigarettes Smoking end date: 06/26/03 Alcohol intake: former Drinks per week: 10 Alcohol use details: QUIT APRIL 2023 Substance use: never Substance use type: does not use Living arrangements: with family Additional living arrangements comments: with sp Gender identity (if verbalized by the patient): Female Spiritual care concerns: No Meds Home Medications and Allergies Home Medications ?Medication ?Instructions ?Recorded ?Confirmed ?Type amlodipine 5 mg tablet 5 mg PO DAILY 02/12/20 12/04/24 History bupropion HCl 150 mg tablet,12 hr 150 mg PO BID 02/12/20 12/04/24 History sustained-release (Wellbutrin SR) montelukast 10 mg tablet 10 mg PO DAILY 02/12/20 12/04/24 History omeprazole 20 mg capsule,delayed 40 mg PO DAILY 02/12/20 12/04/24 History release trazodone 50 mg tablet 50 mg PO HS 02/12/20 12/04/24 History atorvastatin 20 mg tablet 20 mg PO HS 07/18/23 12/04/24 History fluticasone fur. 200 mcg-umeclid 1 inh inhalation DAILY 07/18/23 12/04/24 History 62.5 mcg-vilant 25 mcg inhalat.powder (Trelegy Ellipta) hydrocodone 7.5 mg-acetaminophen 1 tablet PO TID PRN Pain 07/18/23 11/22/24 History 325 mg tablet ipratropium 0.5 mg-albuterol 3 mg 3 ml inhalation QID PRN Shortness 07/18/23 11/22/24 History (2.5 mg base)/3 mL nebulization Of Breath soln benralizumab 30 mg/mL subcutaneous 30 mg subcut ONCE 11/22/24 11/22/24 History syringe (Fasenra) tirzepatide (weight loss) 2.5 0.5 mg subcut WEEKLY 11/22/24 12/04/24 History mg/0.5 mL subcutaneous pen injector (Zepbound) Allergies Allergy/AdvReac Type Severity Reaction Status Date / Time Penicillins Allergy Unknown Hives / Verified 12/04/24 06:21 Red Face Vital Signs Vital Signs - 24 hr 12/04/24 06:24 Temperature 97.8 F Pulse Rate 66 Respiratory Rate 16 Blood Pressure 178/68 H Pulse Oximetry 100 Oxygen Delivery Room Air Exam Const: General: cooperative and healthy appearing Resp: Effort & Inspection: normal respiratory effort and able to speak in complete sentences Auscultation: clear to auscultation bilaterally Cardio: Rate: regular rate Rhythm: regular rhythm GI: Inspection: normal to inspection GI Palp: No No hepatosplenomegaly present Auscultation: normal bowel sounds Rectal Exam: deferred Skin: General skin exam: normal color Psych: Appearance: grossly normal Mental Status: mental status grossly normal Assessment and Plan Assessment and plan (1) History of adenomatous polyp of colon: Code(s): Z86.0101 - Personal history of adenomatous and serrated colon polyps Status: Acute Assessment and Plan: The patient is deemed a good candidate for the procedure. Consent signed. Will proceed.
--- NOTE | 2024-12-04 07:26 | SUR.PREOP ---
12/03/24 1600 Received an email that the pt's procedure was not covered by insurance and would need to be cancelled. 1605 I called patient and voicemail was left asking for patient to return call. 1610 I called [place] in Patient Access to discuss patient's issues further. 1630 Patient called me and we discussed the issue. She told me she talked with her insurance company and they told her the procedure was approved. We discussed that the screening colonoscopy was approved but if we found anything like a polyp we did not have approval to remove it or biopsy it. She said that since she started her prep already she wanted to proceed with the procedure. She understood that we would just be doing a look and if we found anything she would need to re-prep and come back for another procedure and it would be considered a diagnostic which the insurance would pay at a lesser rate. She stated that she has meet her deductible and she just come back. I told we would see her in the morning for her 730 procedure. Patient said she was going to call her insurance again to see what she could find out. 12/04/24 0645 I went in to see how the patient was doing she said she spoke with a Fina Walker from her insurance company and Fina had said that she was approved for 5 different procedure codes and pre-authorization was needed. I offered to delay pt's procedure till after 830 until they could check her verification but they wouldn't get here till after 8 and the insurance company didn't open till 8 am. Pt and her spouse said they didn't want to wait because the answer could still be that she was not covered for biopsies or polypectomies. Dr. eBgum was notified as well as the team regarding the circumstances of the patient's insurance issues. All voiced understanding.
[2024-12-04 07:47] VITALS: BP 140/65; PULSE 67; RESP 18; O2SAT 100
[2024-12-04 07:57] VITALS: BP 151/78; PULSE 61; RESP 19; O2SAT 97
[2024-12-04 08:07] VITALS: BP 152/71; PULSE 54; RESP 17; O2SAT 100
== END 2024-12-04 08:15 | disposition home or self-care (01) ==
PROVIDERS: PCP Internal Medicine; Referring Provider Internal Medicine; Visit Provider Internal Medicine Gastroenterology
PROC: 0DJD8ZZ Inspection of Lower Intestinal Tract, Via Natural or Artificial Opening Endoscopic (ICD-10-PCS; CPT 45378; principal; 2024-12-04 07:30)
DX: Z12.11 Encounter for screening for malignant neoplasm of colon (principal); Z86.0100 Personal history of colon polyps, unspecified; Z87.891 Personal history of nicotine dependence; E66.01 Morbid (severe) obesity due to excess calories; Z68.41 Body mass index [BMI] 40.0-44.9, adult
CPT/HCPCS: 45378; J2003; J2704; J7120

== ENCOUNTER 2024-12-24 10:26 | Outpatient (CLI) | payer OTHER, SELFPAY ==
--- NOTE | ~2024-12-24 | XR_ITS ---
Right Hand Technique: PA, oblique, and lateral views were obtained. Clinical History: Pain Findings: No acute fracture or dislocation is seen. Osseous alignment is anatomic. Joint spaces are p reserved. Soft tissues are unremarkable. Impression: Unremarkable right hand. Reviewed, dictated and finalized at location M. Impression: Unremarkable right hand.
--- NOTE | ~2024-12-24 | DEXA_ITS ---
Bone Density Report Name: NGOC LAWRENCE Age: 54 Sex: Female Ethnicity: White Date of : 1970 Indication: postmenopausal; screening for osteoporosis; asthma or emphysema; Referring Provider: SERGIO DE LEÓN Study: Bone densitometry was performed. Exam Date: December 24, 2024 Accession number: [id number] Bone Density: Region BMD T-score Z-score Classification AP Spine(L1-L4) 1.071 0.2 1.4 Normal Femoral Neck (Left) 0.764 -0.8 0.4 Normal Total Hip (Left) 1.046 0.8 1.6 Normal Femoral Neck (Right) 0.806 -0.4 0.7 Normal Total Hip (Right) 1.033 0.7 1.5 Normal Total Hip Mean 1.040 0.8 1.6 Normal World Health Organization criteria for BMD impression classify patients as: Normal (T-score at or above -1.0), Osteopenia (T-score between -1.0 and -2.5), or Osteoporosis (T-score at or below -2.5). 10-year Fracture Risk: FRAX not reported because: All T-scores for Spine Total, Hip Total, Femoral Neck at or above -1.0 Previous Exams: -- Region Exam Age BMD T-score BMD Change BMD Change Date g/cm2 vs Baseline vs Previous -- AP Spine (L1-L4) 12/24/2024 54 1.071 0.2 -4.2%* -4.2%* 10/25/2022 52 1.117 0.6 Total Hip(Left) 12/24/2024 54 1.046 0.8 -7.8%* -7.8%* 10/25/2022 52 1.135 1.6 Total Hip(Right) 12/24/2024 54 1.033 0.7 -11.1%* -11.1%* 10/25/2022 52 1.162 1.8 -- *Denotes significance at 95% confidence level, LSC for AP Spine = 0.022 g/cm2, LSC for Total Hip = 0.027 g/cm2 Clinical Information Provided by Patient: Has the following medical conditions: Asthma or Emphysema Patient maximum height was 60 Menopause Age: 48 Drinks caffeinated beverages Onset of menses at age 11 Number of children 2 Impression: The patient has normal bone mass. The BMD for the AP Spine (L1-L4) decreased, changing by -4.2% since the last DXA exam. The BMD for the Total Hip(Left) decreased, changing by -7.8% since the last DXA exam. The BMD for the Total Hip(Right) decreased, changing by -11.1% since the last DXA exam. Discussion: BONE DENSITY IS ABOVE THE MINIMUM DESIRABLE LEVEL AT ALL SKELETAL SITES TESTED. This patient?s bone mineral density is above the minimum desirable level (T-score -1.0 or better) at all sites measured. The patient should follow a healthful lifestyle (good nutrition with adequate calcium and vitamin D, and appropriate weight-bearing exercise). Follow-Up: Consider repeating this study in 3 to 4 years to reassess this patient's status, or sooner if there is some new clinical indication. Reported by: ASHLEY on 12/24/2024 10:57:00 AM. Reviewed, dictated and finalized at location A.
== END 2024-12-24 10:27 | disposition home or self-care (01) ==
PROVIDERS: PCP Obstetrics & Gynecology; Visit Provider Internal Medicine
DX: Z13.820 Encounter for screening for osteoporosis (principal); M79.641 Pain in right hand
CPT/HCPCS: 73130; 77080

== ENCOUNTER 2025-01-15 10:18 | Outpatient (CLI) | payer OTHER, SELFPAY ==
--- NOTE | ~2025-01-15 | XR_ITS ---
EXAM/ PROCEDURE: XR wrist RT min 3V - 01/15/2025 10:28 CDT HISTORY: 54 years old Female with Pain in right wrist COMPARISON: None available TECHNIQUE: Three view(s) FINDINGS/ IMPRESSION: There are no fractures or dislocations.Joint space narrowing, subchondral sclerosis, subchondral cyst formation and osteophyte formation, compatible with mild osteoarthritis. Reviewed, dictated and finalized at location A.
== END 2025-01-15 10:19 | disposition home or self-care (01) ==
LOC: MICIMG 10:20
PROVIDERS: PCP Internal Medicine; Visit Provider Internal Medicine
DX: M25.531 Pain in right wrist (principal)
CPT/HCPCS: 73110

== ENCOUNTER 2025-01-24 10:12 | Outpatient (CLI) | payer OTHER, SELFPAY ==
--- NOTE | ~2025-01-24 | MM_ITS ---
EXAMINATION: MM screening sherlyn BI w charles HISTORY: Screening TECHNIQUE: Craniocaudal and mediolateral oblique 3-D tomosynthesis images were obtained and synthetic 2-D images were generated. CAD analysis was submitted and interpreted. COMPARISON: Comparison to multiple prior studies sequentially, with oldest reviewed study dated 04/28. BREAST PARENCHYMAL COMPOSITION: Not dense: There are scattered areas of fibroglandular density. FINDINGS: There is no evidence of suspicious mass, calcification, or architectural distortion to sugg est malignancy in either breast. There has been no suspicious interval change. IMPRESSION: 1. No mammographic evidence of malignancy. 2. Recommend routine screening mammography in one year. BI-RADS Category 1: Negative Reviewed, dictated and finalized at location B.
--- OUTSIDE RECORDS SUMMARY | 2025-01-24 10:18 | XMS_ITS | Encounter Summary ---
Author Organization [facility] Address [address] [place] [id number] Care Team Providers Care Executive Casino Host Name Role Phone Glenroy Mckeon MD Primary Care Provider Encounter Details Date Type Department Care Team (Late st Contact Info) Description 01/05/2022 Therapy Plan [facility] [address] [place] [address] Arnold Quesada MD [place] [address] Social History Tobacco Use Types Packs/Day Years Used Date Smoking Tobacco: Former Smokeless Tobacco: Never Comments:quit 20 years ago Alcohol Use Standard Drinks/Week Comments Never 0 (1 standard drink = 0.6 oz pur e alcohol) PHQ-2 Answer Date Recorded PHQ-2 Score - If the patient scores above 3, please move on to questions 3-9 0 06/28/2021 Comments No Sex and Gender Information Value Date Recorded Sex Assigned at Female 07/09/2024 9:24 AM ASSOCIATE VICE PRESIDENT Legal Sex Female 10:10 AM ASSOCIATE VICE PRESIDENT Gender Identity Not on file Sexual Orientation Not on file COVID-19 Exposure Response Date Recorded In the last 10 days, have yo u been in contact with someone who was confirmed or suspected to have Coronavirus/COVID-19? No / Unsure 12/30/2021 8:44 AM CDT documented as of this encounter Plan of Treatment Not on file documented as of this encounter Visit Diagnoses Diagnosis Severe persistent asthma, unspecified whether complicated (CMS/HCC [facility]/HCC)- Primary documented in this encounter Additional Health Concerns Assessment Noted Time PHQ-9 Depression Total Score: 0 06/28/19 22 11:19 AM ASSOCIATE VICE PRESIDENT documented as of this encounter Care Teams Executive Casino Host Relationship Specialty Start Date End Date Glenroy Mckeon MD [address] [phone] PCP - General INTERNAL MEDICINE 06/22/21 documented as of this encounter
--- OUTSIDE RECORDS SUMMARY | 2025-01-24 10:18 | XMS_ITS | Encounter Summary ---
Author Organization [facility] Address [address] [place] [address] Care Team Providers Care Button And Buckle Maker Name Role Phone Glenroy Mckeon MD Primary Care Provider [phone] Encounter Details Date Type Department Care Team (Late st Contact Info) Description 01/05/2022 RX Orders Only [facility] [address] [place], [place] [id number] Geovani Rodriguez, PharmD Social History Tobacco Use Types Packs/Day Years [...] Sex Assigned at Female 07/09/2024 9:24 AM FRENCH TEACHER Legal Sex Female 10:10 AM FRENCH TEACHER Gender Identity Not on file Sexual Orientation Not on file COVID-19 Exposure Response Date Recorded In the last 10 days, have yo u been in contact with someone who was confirmed or suspected to have Coronavirus/COVID-19? No / Unsure 12/30/2021 8:44 AM CDT documented as of this encounter Plan of Treatment Not on file documented as of this encounter Visit Diagnoses Not on filedocumented in this encounter Additional Health Concerns Assessment Noted Time PHQ-9 Depression Total Score: 0 06/28/19 22 11:19 AM FRENCH TEACHER documented as of this encounter Care Teams Button And Buckle Maker Relationship Specialty Start Date End Date Glenroy Mckeon MD [address] [phone] PCP - General INTERNAL MEDICINE 06/22/21 documented as of this encounter
--- OUTSIDE RECORDS SUMMARY | 2025-01-24 10:18 | XMS_ITS | Continuity of Care Document ---
Author Organization [facility] Address [address] [place] [address] Phone Care Team Providers Care Morale Officer Name Role Phone Larios OD, Octavio Unavailable Unavailable Procedures Procedure Date Office/outpatient Visit, Est Eye Exam Established Pt Advance Directives Directive Yes / No Effective Date File Name No Information Encounters Encounter Description Practice Location Reason(s) For Visit Diagnoses Date Provider Providers Copied on Encounter Office/outpat ient Visit, Est [facility], [address], [place], [place], [id number], tel:[phone] [address] [facility] No Information Sep-0 8-200 9 Larios OD Octavio. [address] [facility] , [address], [place], [place], [facility], [place]. tel:[phone] [facility], [address] [place] [address] [address], [place], [place], [id number], tel:[phone] [address] [facility] No Information Sep-0 4-200 9 Larios OD Octavio. [address] [facility] , [address], [place], [address], [place]. tel:[phone] Family History Family Member Type Diagnosis Age At Onset No Information Payers Payer name Insurance type Covered constitution party ID Authoriza tion(s) No Information Social [...]
--- OUTSIDE RECORDS SUMMARY | 2025-01-24 10:18 | XMS_ITS | Encounter Summary ---
Author Organization [facility] Address [facility] [place] [address] Care Team Providers Care Slab Stripper Name Role Phone Glenroy Mckeon MD Primary Care Provider [phone] Encounter Details Date Type Department Care Team (Late st Contact Info) Description 09/05/2024 Therapy Plan [facility] Day Services [address] [place], [place] [id number] Arnold Quesada MD [employer] [place] [address] Social History Tobacco Use Types Packs/Day Years [...] Sex Assigned at Female 07/09/2024 9:24 AM INFORMIX DEVELOPER Legal Sex Female 10:10 AM INFORMIX DEVELOPER Gender Identity Not on file Sexual Orientation Not on file documented as of this encounter Plan of Treatment Not on file documented as of this encounter Visit Diagnoses Diagnosis Severe persistent asthma, unspecified whether complicated (CMS/HCC [facility]/HCC)- Primary documented in this encounter Additional Health Concerns Assessment Noted Time PHQ-9 Depression Total Score: 0 06/28/19 22 11:19 AM INFORMIX DEVELOPER documented as of this encounter Care Teams Slab Stripper Relationship Specialty Start Date End Date Glenroy Mckeon MD [address] [phone] PCP - General INTERNAL MEDICINE 06/22/21 documented as of this encounter
--- OUTSIDE RECORDS SUMMARY | 2025-01-24 10:18 | XMS_ITS | Clinical Summary ---
Author Organization [facility] Address [address] [place] [address] Care Team Providers Care Grievance And Appeals Coordinator Name Role Phone Glenroy Mckeon MD Primary Care Provider [phone] Allergies Active Allergy Reactions Criticality Noted Date Comments Penicillin V Hives 06/28/2021 Medications amLODIPine 5 MG tablet Take 5 mg by mouth daily. Active buPROPion SR 200 MG TABLET SR 12 HR 12 hr tablet Take 1 tablet by mouth 2 (two) times daily. Active traZODone 50 MG tablet Take 50 mg by mouth nightly at bedtime. at bedtime 06/14/2021 Active omeprazole 20 MG capsule Take 20 mg by mouth daily. Active pravastatin 40 MG tablet Take 40 mg by mouth nightly at bedtime. Active furosemide 10 MG/ML oral solution Take by mouth daily. Active HYDROcodone-cristóbal taminophen 7.5-325 MG tablet 06/04/2021 Active ipratropium-alb uterol 0.5-2.5 (3) MG/3ML Solution 01/05/2021 Active CPAP DEVICE, DME, 1 Device by Does not apply route. Active Active Problems Problem Noted Date Diagnosed Date Severe persistent asthma ([facility]/HCC [facility]) 12/17 Family History Medical History Relation Comments Diabetes Father Heart Attack Father Hypertension Mother Relation Status Comments Father Mother Social History Tobacco Use Types Packs/Day Years Used Date Smoking Tobacco: Former Smokeless Tobacco: Never Tobacco Cessation:Counseling Given: Yes Comments:quit 20 years ago Alcohol Use Standard Drinks/Week Comments Never 0 (1 standard drink = 0.6 oz pur e alcohol) PHQ-2 Answer Date Recorded PHQ-2 Score - If the patient scores above 3, please move on to questions 3-9 0 06/28/2021 Comments No Sex and Gender Information Value Date Recorded Sex Assigned at Female 07/09/2024 9:24 AM BELT KNIFE FEEDER Legal Sex Female 10:10 AM BELT KNIFE FEEDER Gender Identity Not on file Sexual Orientation Not on file Last Filed Vital Signs Vital Sign Reading Time Taken Comments Blood Pressure 155/75 05/13/2024 11:04 AM BELT KNIFE FEEDER Pulse 75 05/13/2024 11:04 AM BELT KNIFE FEEDER Temperature 36.6 C (97.9 F) 05/13/2024 11:04 AM BELT KNIFE FEEDER Respiratory Rate 16 05/13/2024 11:04 AM BELT KNIFE FEEDER Oxygen Saturation 99% 05/13/2024 11:04 AM BELT KNIFE FEEDER Inhaled Oxygen Concentration - - Weight 117.9 kg (260 lb) 11/23/2023 9:09 AM CDT Height 152.4 cm (5') 09/28/2023 9:06 AM CDT Body Mass Index 50.78 09/28/2023 9:06 AM CDT Plan of Treatment Health Maintenance Due Date Last Done Comments Cervical Cancer Screening Pa p Smear (Age 30 to 64) Every 3 Years 1970 Colorectal Cancer Screening Colonoscopy (10 Years) 1970 Annual Physical 02/04/1971 Hepatitis C 02/04/1986 DTaP, Tdap and Td Vaccines ( 1 - Tdap) 02/04/1987 Hepatitis B Vaccines (1 of 3 - 19+ 3-dose series) 02/04/1987 Pneumococcal Vaccine: 50+ Years (1 of 2 - PCV) 02/04/1987 Cervical Cancer Screening Pa p with HPV Testing (Age 30 to 64) Every 5 Years 02/04/1998 Cervical Cancer Screening wi th HPV 02/04/1998 Mammogram Screening 2008 Zoster Vaccines (2 of 2) 08/20/2021 06/25/2021 COVID-19 Vaccine (2023-2 5 season) 2024 05/12/2021, 09/19/2020, 08/22/2020 Meningococcal B Vaccine Aged Out No l onger eligible based on patient's age to complete this topic Meningococcal Vaccine Aged Out No kevin king eligible based on patient's age to complete this topic RSV Immunizations Under 20 Months Aged Out No longer eligible b ased on patient's age to complete this topic Insurance [employer] Member Subscriber Plan / Payer ( fective 2021-Present) Name:Brittney Marmolejo Relation to Subscriber:Self Name:Brittney Marmolejo Payer ID:Not on file Type:Not on file Address: [facility] [place] Pending sale to [facility] Care Teams Grievance And Appeals Coordinator Relationship Specialty Start Date End Date Glenroy Mckeon MD [address] [phone] PCP - General INTERNAL MEDICINE 06/22/21
--- OUTSIDE RECORDS SUMMARY | 2025-01-24 10:18 | XMS_ITS | Encounter Summary ---
Author Organization [facility] Address [facility] [place] [address] Care Team Providers Care Legal Word Processor Name Role Phone Glenroy Mckeon MD Primary Care Provider [phone] Encounter Details Date Type Department Care Team (Late st Contact Info) Description 12/17/2021 Therapy Plan [facility] [address] [place], [place] [id number] Arnold Quesada [place] [address] Social History Tobacco Use Types Packs/Day Years Used Date Smoking Tobacco: Never Assessed PHQ-2 Answer Date Recorded PHQ-2 Score - If the patient scores above 3, please move on to questions 3-9 0 06/28/2021 Comments No Sex and Gender Information Value Date Recorded Sex Assigned at Female 07/09/2024 9:24 AM HEAVY DUTY PRESS OPERATOR Legal Sex Female 10:10 AM HEAVY DUTY PRESS OPERATOR Gender Identity Not on file Sexual Orientation Not on file documented as of this encounter Plan of Treatment Not on file documented as of this encounter Visit Diagnoses Diagnosis Severe persistent asthma, unspecified whether complicated ([facility]/HCC [facility])- Primary documented in this encounter Additional Health Concerns Assessment Noted Time PHQ-9 Depression Total Score: 0 06/28/19 22 11:19 AM HEAVY DUTY PRESS OPERATOR documented as of this encounter Care Teams Legal Word Processor Relationship Specialty Start Date End Date Glenroy Mckeon MD [address] [phone] PCP - General INTERNAL MEDICINE 06/22/21 documented as of this encounter
--- OUTSIDE RECORDS SUMMARY | 2025-01-24 10:18 | XMS_ITS | Encounter Summary ---
Author Organization [facility] Address [facility] [place] [address] Care Team Providers Care Studio Technician Video Operator Name Role Phone Glenroy Mckeon MD Primary Care Provider [phone] Encounter Details Date Type Department Care Team (Late st Contact Info) Description 10/17/2023 Therapy Plan [facility] [address] [place], [place] [id number] Arnold Quesada MD [email or web address] [address] Social History Tobacco Use Types Packs/Day Years [...] Sex Assigned at Female 07/09/2024 9:24 AM BRAKE [employer] Legal Sex Female 10:10 AM BRAKE [employer] Gender Identity Not on file Sexual Orientation Not on file documented as of this encounter Plan of Treatment Not on file documented as of this encounter Visit Diagnoses Diagnosis Severe persistent asthma, unspecified whether complicated (CMS/HCC HHS/HCC) documented in this encounter Additional Health Concerns Assessment Noted Time PHQ-9 Depression Total Score: 0 06/28/19 22 11:19 AM BRAKE COUPLER DINKEY documented as of this encounter Care Teams Studio Technician Video Operator Relationship Specialty Start Date End Date Glenroy Mckeon MD [address] [id number] PCP - General INTERNAL MEDICINE 06/22/21 documented as of this encounter
--- OUTSIDE RECORDS SUMMARY | 2025-01-24 10:18 | XMS_ITS | Clinical Summary ---
Author Organization [facility] Address [address] [place] [address] Care Team Providers Care Abrasives Sales Representative Name Role Phone Glenroy Mckeon MD Primary Care Provider Source Comments [facility],non-owned Affiliates and Associated Physician Practices is amultiple site organization consisting of ambulatory clinics and hospital sitesin [place], [place], [place] and [place]. This disclosure is being madepursuant to the Care Everywhere program and may not contain all information available regarding this patient. Last updated 18.[facility] [employer] Social History Tobacco Use Types Packs/Day Years Used Date Smoking Tobacco: Never Assessed Comments Unknown Sex and Gender Information Value Date Recorded Sex Assigned at Not on file Legal Sex Female 6:16 AM SUPER[employer] Gender Identity Not on file Sexual Orientation Not on file Last Filed Vital Signs Vital Sign Reading Time Taken Comments Blood Pressure 177/77 05/08/2015 12:02 PM [employer] Pulse 74 05/08/2015 12:02 PM [employer] Temperature 35.9 C (96.6 F) 05/08/2015 12:02 PM [employer] Respiratory Rate 15 05/08/2015 12:02 PM [employer] Oxygen Saturation 99% 05/08/2015 12:02 PM [employer] Inhaled Oxygen Concentration - - Weight 108.9 kg (240 lb) 05/08/2015 12:02 PM [employer] Height 152.4 cm (5') 05/08/2015 12:02 PM [employer] Body Mass Index 46.87 05/08/2015 12:02 PM [employer] Plan of Treatment Health Maintenance Due Date Last Done Comments COLOGUARD (AGES 45-75) - COL ON CA SCREENING 1968 COLON MONITORING 1968 COLONOSCOPY - COLON CA SCREENING 1968 CT COLONOGRAPHY - COLON CA SCREENING 1968 Colorectal Cancer Screening 1968 FIT - COLON CA SCREENING 1968 FLEX SIG - COLON CA SCREENING 1968 LIPID TESTING 1968 MAMMOGRAM 1968 HIV SCREENING 02/04/1983 HEPATITIS C SCREENING 01/31/1986 DTAP/TDAP/TD VACCINES (1 - Tdap) 02/04/1987 HEPATITIS B VACCINE (1 of 3 - 19+ 3-dose series) 02/04/1987 PAP SMEAR 02/04/1989 PNEUMOCOCCAL VACCINE 50+ (1 of 1 - PCV) 02/04/2018 ZOSTER VACCINE (1 of 2) 02/04/2018 COVID-19 VACCINE (1 - 2023-2 5 season) 2024 DEPRESSION SCREENING 06/26/2024 INFLUENZA VACCINE (#1) 2025 HIB VACCINE Aged Out No longer [...] Name:BRITTNEY MARMOLEJO Subscriber ID:Not on file Address: [facility] [place] [address] Payer ID:Not on file Group ID:Not on file Type:Self Pay Address: [place], [place] [facility] SELF PAY NO INSURANCE Member Subscriber Plan / Payer (Ef fective for All Dates) Name:Brittney Marmolejo Member ID:Not on file Relation to Subscriber:Not on file Name:BRITTNEY MARMOLEJO Subscriber ID:Not on file Address: [facility] [place], [id number] Payer ID:Not on file Group ID:Not on file Type:Self Pay Address: [place], [place] [facility] SELF PAY NO INSURANCE Member Subscriber Plan / Payer (Ef fective for All Dates) Name:Francie Brittney Toribio Member ID:Not on file Relation to Subscriber:Not on file Name:BRITTNEY MARMOLEJO Subscriber ID:Not on file Address: [address] [place] [id number] Payer ID:Not on file Group ID:Not on file Type:Self Pay Address: [place], [place] Care Teams Abrasives Sales Representative Relationship Specialty Start Date End Date Glenroy Mckeon MD [address] [place] [address] [address] [place] [address] PCP - General 03/20/19
== END 2025-01-24 10:13 | disposition home or self-care (01) ==
LOC: CHSIMG 10:14
PROVIDERS: PCP Internal Medicine; Visit Provider Internal Medicine
DX: Z12.31 Encounter for screening mammogram for malignant neoplasm of breast (principal)
CPT/HCPCS: 77063; 77067